=== PATIENT | female | born 1960 | race Caucasian/White ===

== ENCOUNTER 2017-06-16 14:38 | Emergency (ER) | payer OTHER, SELFPAY ==
[2017-06-16 14:39] VITALS: BP 126/67; PULSE 85; RESP 16; TEMP 36.6; O2SAT 98; BMI 33.0
--- NOTE | 2017-06-16 15:37 | RAD_ITS ---
STUDY: X-RAY - RIGHT WRIST REASON FOR EXAM: Female, 56 years old. Wrist pain. TECHNIQUE: 3 view(s) of the wrist were obtained. COMPARISON: None. FINDINGS: Normal visualized distal radius and ulna. Normal radiocarpal articulation. Normal distal radioulnar articulation. Normal carpal bones. Normal carpal articulations. Normal carpometacarpal articulation of the thumb. Normal second through fifth carpometacarpal articulations. Normal visualized metacarpal bones. The soft tissue structures are unremarkable. There is no demonstrated acute fracture. RAD/Wrist min 3 Views IMPRESSION: Normal x-ray examination of the wrist. Electronically Signed: Tremaine Bellamy MD at 16:37 EST , Service support ,
--- NOTE | 2017-06-16 15:37 | RAD_ITS ---
STUDY: X-RAY - RIGHT SHOULDER REASON FOR EXAM: Female, 56 years old. Fall. Shoulder pain. TECHNIQUE: 4 view(s) of the shoulder. COMPARISON: None. FINDINGS: Normal glenohumeral articulation. Normal acromioclavicular joint. Normal acromion. Normal humeral head and visualized proximal humerus. The soft tissue structures are unremarkable. There is no demonstrated fracture. Normal visualized pulmonary apex. RAD/Shoulder min 2 Views IMPRESSION: Normal x-ray examination of the shoulder. Electronically Signed: Tremaine Bellamy MD at 16:39 EST , Service support ,
--- NOTE | 2017-06-16 15:37 | RAD_ITS ---
STUDY: X-RAY - LEFT WRIST REASON FOR EXAM: Female, 56 years old. Fall. Left wrist pain. TECHNIQUE: 3 view(s) of the wrist were obtained. COMPARISON: None. FINDINGS: Normal visualized distal radius. Old ununited fracture of the tip of the ulnar styloid. Normal radiocarpal articulation. Normal distal radioulnar articulation. Normal carpal bones. Normal carpal articulations. Normal carpometacarpal articulation of the thumb. Normal second through fifth carpometacarpal articulations. Normal visualized metacarpal bones. The soft tissue structures are unremarkable. There is no demonstrated acute fracture. RAD/Wrist min 3 Views IMPRESSION: No acute fracture or dislocation. Electronically Signed: Tremaine Bellamy MD at 16:42 EST , Service support ,
--- NOTE | 2017-06-16 15:42 | ED.VISSUMM ---
- ER Visit Summary Date of Service: 06/16/17 Chief Complaint: Fall History of Present Illness: The patient is a 56 F who fell on a slick floor at [facility] this afternoon. She did hit her head but did not lose consciousness. She is complaining of pain to the bilateral wrists, right shoulder, and right hip. She has been able to ambulate. She has not yet taken anything for pain. She does not take anticoagulants. Physical Examination: Vital signs are unremarkable. Head and neck examination reveals no external sign of trauma. She has no C-spine tenderness. Heart is regular rate and rhythm. Lung sounds are clear. There is no chest wall tenderness. Abdomen is soft nontender. Upper extremity examination reveals tenderness of the bilateral wrist without deformity or edema. She has good strength and range of motion. She does have reproducible tenderness over the upper portion of the right scapula. She has good range of motion of the right shoulder. No abrasions or ecchymosis is noted. Lower extremity examination reveals tenderness of the greater trochanter of the right hip. She has very minimal if any pain with logroll of the right hip. She has strong distal pulses and good range of motion. Test Results: X-rays are reviewed by myself. Bilateral wrist x-rays reveal an old ulnar styloid process fracture on the left. No evidence of acute fracture is noted. Right shoulder x-rays are unremarkable. Right hip and pelvis x-rays are normal. Emergency Department Course and Treatment: Patient declined anything for pain while here. Test results were discussed with her and her . She will be discharged home with instructions to take Tylenol or ibuprofen for pain. Treatment Plan: [] Disposition: Discharge Impression: 1. Mechanical fall 2. Bilateral wrist contusions 3. Right shoulder contusion 4. Right hip contusion This note was generated with [employer] dictation software. It may contain incorrect words, spelling, and punctuation that were not noted in review of the chart prior to signing ED Disposition - Plan for ED Patient: Chief Complaint: Fall Referrals: Edmund Fajardo MD [Primary Care Provider] -
--- NOTE | 2017-06-16 16:05 | RAD_ITS ---
STUDY: X-RAY - PELVIS AND RIGHT HIP REASON FOR EXAM: Female, 56 years old. Fall. TECHNIQUE: Radiological exam, hip, unilateral, with pelvis when performed; 2 or 3 views. COMPARISON: None. FINDINGS: There is a non-specific bowel gas pattern. Normal visualized soft tissue structures. Normal bilateral iliac wings, sacroiliac joints and visualized sacrum. Normal bilateral superior and inferior pubic rami. Normal pubic symphysis. Normal bilateral ischial tuberosities. Normal visualized femoral head. Normal acetabulum. Normal hip joint. RAD/Hip 2-3 Views with Pelvis IMPRESSION: Normal x-ray examination of the pelvis and hip. Electronically Signed: Tremaine Bellamy MD at 16:39 EST , Service support ,
--- NOTE | 2017-06-16 16:40 | ED.DEP ---
ED Disposition - Plan for ED Patient: Disposition: Home or Assisted Living Chief Complaint: Fall Instructions: ED Mechanical Fall, ED Contusion Lower Ext, ED Contusion Upper Ext Referrals: Edmund Fajardo MD [Primary Care Provider] - 1 Week if not improving
[2017-06-16 16:56] VITALS: BP 125/88; PULSE 96; RESP 17
== END 2017-06-16 17:00 | disposition home or self-care (01) ==
PROVIDERS: Emergency Provider Emergency Medicine; Family Provider Family Medicine; PCP Family Medicine
DX: S60.212A Contusion of left wrist, initial encounter (principal); S60.211A Contusion of right wrist, initial encounter; S40.011A Contusion of right shoulder, initial encounter; S70.01XA Contusion of right hip, initial encounter; S09.90XA Unspecified injury of head, initial encounter; W01.0XXA Fall on same level from slipping, tripping and stumbling without subsequent striking against object, initial encounter; Y93.9 Activity, unspecified; Y92.511 Restaurant or cafe as the place of occurrence of the external cause; Y99.9 Unspecified external cause status; M19.90 Unspecified osteoarthritis, unspecified site
CPT/HCPCS: 73030; 73110; 73502; 99282

== ENCOUNTER 2017-12-01 11:30 | Outpatient (RCR) | payer OTHER, SELFPAY ==
--- NOTE | 2017-11-08 17:01 | HP.PTREVAL_ITS ---
Mikhail Fajardo, It has been my pleasure to treat KELVIN RENO over the last 7 visits for IT Band Syndrome Bilateral. Please see the progress note below for an update on the physical therapy plan of care! Subjective: L knee does not ache like it did at night. Feels good when not rolling or poking at it. Still need more flexibility. Sleeping OK. Activity is normal, used to avoid due to would pay for it. Standing on the ladder hurt the back of both legs when she stands on ladder too long.No f/u with doctor. Objective/Function: strength in hip abd and ext 4/5 but still slightly painful B ITB. tender over ITB L distal. Still very tight B ITB with only about 4 degrees of passive abd in sidelying. Walking well and steps reciprocal without rail today. OVERALL MUCH IMPROVED BUT STILL NOT HAPPY WITH TIGHTNESS ADN INTERMITTENT DISCOMFORT IN ITB. Approriate to continue for soft tissue work B ITB. Plan Plan: change to plan2x/week for 3 weeks.. Please do MH adn aggressive massage to ITB, quad and HS adn aggressive stretch to those also. Pt can do strength and stretching on own at home. EG to recheck in 3 weeks. Goals Goal 1:: Patient will increase BLE grossly 4+/5 for improved performance with functional activities Goal Time Frame: 4-6 Weeks Goal Progress: 4/5 Goal 2:: Patient will demonstrate mild tightness of bilateral IT band for improved flexibility and decrease pain Goal Time Frame: 4-6 Weeks Goal Progress: L max tight, R mod. Goal 3:: Patient will squat down to grain picker an object and return to standing without UE support or increase in knee pain for improved performance with functional tasks Goal Time Frame: 4-6 Weeks Goal Progress: Goal Met Goal 4:: Patient will descend a flight of stairs without increasing knee pain for improved mobility Goal Time Frame: 4-6 Weeks Goal Progress: Goal Met Goal 5:: 12 degrees adduction passively in B ITB to reduce tightness. Goal Time Frame: 2 Weeks Goal Progress: NEW GOAL Anticipated Interventions Patient/Client Instruction: Educate patient on: Plan of Care For the Purpose of:: To decrease pain, To increase ROM, To improve muscle performance and motor function, To improve ability to perform ADL's, To improve performance and independence with ADL's, To improve ability of physical actions for home/community/work/leisure, To improve gait and locomotor functions, To increase flexibility/ROM, To improve endurance, To improve balance Therapeutic Exercise to Include: Strength training, Endurance training, Balance training, Body mechanics, Flexibilty training, Gait and locomotor training, Neuromotor development For the Purpose of:: To increase ROM, To improve muscle performance and motor function, To improve ability to perform ADL's, To improve ability of physical actions for home/community/work/leisure, To increase flexibility/ROM, To improve endurance, To improve balance Functional Training to Include: ADL Training, Gait training For the Purpose of:: To improve ability to perform ADL's, To increase tolerance to activity/condition/position For the Purpose of:: To decrease pain, To increase ROM, To increase flexibility/ ROM For the Purpose of:: To decrease pain, To increase ROM Please do not hesitate to contact me at [phone] by phone or Fax: if you have questions or concerns regarding this new plan of care! Sincerely, Grant Carter, DPT, OC
--- NOTE | 2017-12-01 11:51 | HP.PTDCSUM_ITS ---
HP - PT D/C Summary It has been my pleasure to treat KELVIN RENO under orders from Mikhail Fajardo, for the diagnosis of IT Band Syndrome Bilateral for a total of 12 visit( s). Discharge Date: 12/01/17 Please see the following information for a summary of their discharge status. - Subjective Subjective: Has appt with doctor on Tuesday. Wants MRI to see what it is. Pain in last two days at the end of the day described as a toothache adn stiff going down steps. Early in the day is not a lot of painful problems but worried about lump on L lateral quad. Activities pretty normal, just aches at end of day. - Pain left knee Pain Intensity (Out of 10): 0 RIGHT KNEE Pain Intensity (Out of 10): 0 - Overall Improvement % Improvement: 75 - Objective Objective/Function: Definite mass in L lateral quad near patella that is not responding to soft tissue work. Strength is 4+ in HS and quad without pain. Pt lacks confidence in L LE on descending steps but can do it reciprocally. Full AROM knee but ITB and quad remain tight despite afggressive sfot tissue work. OVERALL PT IS FRUSTRATED WITH NODULE IN l LATERAL QUAD AND CONTINUED ACHE AT END OF DAY AND WILL F/U WITH DCOTR. - Goals Goal 1:: Patient will increase BLE grossly 4+/5 for improved performance with functional activities Goal Progress: Goal Met Goal 2:: Patient will demonstrate mild tightness of bilateral IT band for improved flexibility and decrease pain Goal Progress: Not Progressing Goal 3:: Patient will squat down to continuous pickling line pickler an object and return to standing without UE support or increase in knee pain for improved performance with functional tasks Goal Progress: locks up Goal 4:: Patient will descend a flight of stairs without increasing knee pain for improved mobility Goal Progress: hurts still Goal 5:: 12 degrees adduction passively in B ITB to reduce tightness. Goal Progress: NEW GOAL - Plan Plan: D/C, PT BACK TO DOCTOR. - D/C Information Discharge Comments: Pt not satisfactorily improved and will continue HEP but schedule with doctor regarding other options as nodule in L lateral quad is not responding to aggressive soft tissue work. If there are questions or concerns regarding this patient's physical therapy, please feel free to call me at [phone]. Thank you for the referral of this patient. Sincerely, Grant Carter, DPT, OC
== END 2017-12-01 19:00 | disposition home or self-care (01) ==
LOC: PT 11:30
PROVIDERS: Family Provider Family Medicine; PCP Family Medicine; Visit Provider Family Medicine
DX: M76.32 Iliotibial band syndrome, left leg (principal); M76.31 Iliotibial band syndrome, right leg
CPT/HCPCS: 97110; 97140; 97162; 97530

== ENCOUNTER → 2018-01-04 08:47 | Outpatient (CLI) | payer OTHER, SELFPAY ==
[2018-01-04 10:03] LABS: Absolute Lymphocyte Count 1.52 X10^3/ul (0.83-4.51); Absolute Neutrophil Count 4.2 X10^3/uL (2.0-7.7); Basophil# 0.01 X10^3/uL; Basophil% 0.2 % (0-1); Eosinophil# 0.05 X10^3/uL; Eosinophils% 0.8 % (0-5); Hematocrit 44.1 % (37-47); Hemoglobin 14.5 g/dl (12.0-15.0); Lymphocyte # 1.52 X10^3/ul (4.0); Lymphocyte % 24.9 % (19-41); Mean Corp Hgb Conc 32.9 g/gl (32-36); Mean Corpuscular Hgb 29.8 pg (27.0-32.0); Mean Corpuscular Volume 90.6 fL (81-99); Mean Platelet Vol. 10.4 fl (6.2-12.0); Monocyte# 0.31 X10^3/uL; Monocyte% 5.1 % (0-10); Neutrophil # 4.21 X10^3/uL (2.7-7.7); Neutrophil % 68.8 % (47-70); Platelet Count 198 K/mm3 (150-450); RBC Distribution Width CV 12.4 % (11.6-14.6); RBC Distribution Width SD 40.7 fl (35.1-43.9); Red Blood Count 4.87 M/mm3 (4.2-5.4); White Blood Count 6.1 K/mm3 (4.4-11.0)
[2018-01-04 10:06] LABS: POSITIVE COUNT NO; POSITIVE DIFFERENTIAL NO; POSITIVE MORPHOLOGY NO
[2018-01-04 10:08] LABS: Anion Gap 7 (5-15); BUN 21 mg/dL (7-18); BUN/Creat Ratio 24.6 RATIO (10-20); Chloride 104 mmol/L (98-107); Creatinine, Serum 0.85 mg/dL (0.55-1.02); EST Glomerular Filtration Rate 74 mL/min (>60); Est Glom Filt Rate - Afr Amer 89 mL/min (>60); Glucose 92 mg/dL (74-106); Potassium 4.2 mmol/L (3.5-5.1); Sodium Level 140 mmol/L (136-145)
== END ==
PROVIDERS: Family Medicine; Family Provider Family Medicine; PCP Family Medicine; Visit Provider Family Medicine
DX: N12 Tubulo-interstitial nephritis, not specified as acute or chronic (principal)
CPT/HCPCS: 36415; 80048; 85025

== ENCOUNTER → 2018-01-04 09:19 | Outpatient (CLI) | payer OTHER, SELFPAY | PROVIDERS: Family Provider Family Medicine; PCP Family Medicine; Visit Provider Family Medicine | DX: N12 Tubulo-interstitial nephritis, not specified as acute or chronic (principal) | CPT/HCPCS: 74178; Q9967 ==

== ENCOUNTER → 2018-01-04 13:10 | Outpatient (CLI) | payer OTHER, SELFPAY | PROVIDERS: Family Provider Family Medicine; PCP Family Medicine; Visit Provider Family Medicine | DX: N12 Tubulo-interstitial nephritis, not specified as acute or chronic (principal) | CPT/HCPCS: 87077; 87086; 87088; 87186 ==

== ENCOUNTER → 2018-02-23 07:15 | Outpatient (CLI) | payer SELFPAY, OTHER ==
--- NOTE | 2018-02-23 07:22 | MRI_ITS ---
STUDY: MRI LEFT KNEE REASON FOR EXAM: Left knee pain for about 2 years. TECHNIQUE: Standardized fat and water weighted pulse sequences were obtained in all 3 orthogonal planes. COMPARISON: Radiographs 12/27/2016. FINDINGS: There is minimal intrasubstance myxoid degeneration of the posterior horn of the medial meniscus without discrete medial meniscal tear. Normal hyaline cartilage of the medial femorotibial compartment. Normal medial femoral condyle and tibial plateau. Normal medial collateral ligamentous complex (MCL). Normal distal semimembranosus, gracilis and semitendinosus tendons. Normal lateral meniscus. Normal hyaline cartilage of the lateral femorotibial compartment. Normal lateral femoral condyle and tibial plateau. Normal proximal tibiofibular articulation. Normal lateral collateral (fibular) ligament. Normal popliteus tendon. Normal biceps femoris tendon. Normal anterior cruciate ligament (ACL). Normal posterior cruciate ligament (PCL). Normal congruent patellofemoral articulation. Normal hyaline cartilage of the patellofemoral compartment. Normal medial and lateral patellar retinaculum. Normal visualized quadriceps tendon. Normal patellar tendon. Normal Hoffa's fat pad. There is no joint effusion. There is a ganglion cyst of the distal popliteus tendon sheath (T2 sagittal images 15, 16) measuring 2.8 cm in length. There is edema in the anterior subcutis adipose space. The otherwise visualized osseous structures are unremarkable. MRI/Lower Ext Joint Only (Routine) IMPRESSION: Ganglion cyst of the distal popliteus tendon sheath. Edema in the anterior subcutis adipose space. No demonstrated meniscal or ligamentous injury. Electronically Signed: Manjit Lugo MD at 8:54 EDT Tel , Service support ,
== END ==
PROVIDERS: Family Provider Family Medicine; PCP Family Medicine; Visit Provider Family Medicine
DX: M25.562 Pain in left knee (principal)
CPT/HCPCS: 73721; A4216

== ENCOUNTER → 2018-05-15 15:39 | Outpatient (CLI) | payer OTHER, SELFPAY ==
[2018-03-13 08:09] VITALS: BMI 32.0
== END ==
PROVIDERS: Family Provider Family Medicine; PCP Family Medicine; Referring Provider Family Medicine; Visit Provider Family Medicine
DX: R39.15 Urgency of urination (principal)
CPT/HCPCS: 87086; 87088

== ENCOUNTER → 2018-05-16 12:14 | Outpatient (CLI) | payer OTHER, SELFPAY ==
--- NOTE | 2018-05-16 12:17 | US_ITS ---
STUDY: SUPERFICIAL ULTRASOUND - ABOVE THE LEFT KNEE. REASON FOR EXAM: Female, 57 years old. Pain superior to left kidney. TECHNIQUE: A superficial ultrasound was performed with real-time and static gonzalez-scale imaging. COMPARISON: None. FINDINGS: There is edema of the soft tissue above the left knee. No suspicious mass. No suspicious fluid. US/Other Unlisted US Procedure IMPRESSION: Edema above the left knee without suspicious mass. Electronically Signed: Joseph Sapp MD at 11:37 EST , Service support ,
== END ==
PROVIDERS: Family Provider Family Medicine; PCP Family Medicine; Referring Provider Physician Assistant; Visit Provider Physician Assistant
DX: M17.12 Unilateral primary osteoarthritis, left knee (principal); M71.22 Synovial cyst of popliteal space [Baker], left knee
CPT/HCPCS: 76999

== ENCOUNTER → 2018-10-26 07:42 | Outpatient (CLI) | payer OTHER, SELFPAY ==
[2018-03-13 08:09] VITALS: BMI 32.0
[2018-10-26 10:19] LABS: Vitamin B12 347 pg/mL (211-911); Vitamin D,25 Hydroxy 26.4 ng/mL (29.95-100.01)
[2018-10-26 10:23] LABS: ALB/GLOB Ratio 1.1 RATIO (0.9-2.4); AST(SGOT) 13 U/L (15-37); Alanine Aminotransfer ALT/SGPT 26 U/L (13-56); Albumin, Serum 3.5 g/dL (3.2-5.0); Alkaline Phosphatase 107 U/L (45-117); Anion Gap 9 (5-15); BUN 20 mg/dL (7-18); BUN/Creat Ratio 25.7 RATIO (10-20); Calcium,Total 8.8 mg/dL (8.5-10.1); Chloride 107 mmol/L (98-107); Cholesterol 191 mg/dL (200); Creatinine, Serum 0.78 mg/dL (0.55-1.02); EST Glomerular Filtration Rate 81 mL/min (>60); Est Glom Filt Rate - Afr Amer 99 mL/min (>60); Globulin 3.2 g/dL (2.2-4.2); Glucose 85 mg/dL (74-106); High Density Lipoprotein 54 mg/dL; Protein, Total 6.7 g/dL (6.4-8.2); Sodium Level 144 mmol/L (136-145); Thyroid Stim Hormone (TSH) 1.67 uIU/mL (0.358-3.74); Triglycerides 130 mg/dL; Very Low Density Lipoprotein 26 mg/dL (5-40)
== END ==
PROVIDERS: Family Provider Family Medicine; PCP Family Medicine; Referring Provider Family Medicine; Visit Provider Family Medicine
DX: Z00.00 Encounter for general adult medical examination without abnormal findings (principal); L40.50 Arthropathic psoriasis, unspecified; E78.00 Pure hypercholesterolemia, unspecified; K58.1 Irritable bowel syndrome with constipation; E53.8 Deficiency of other specified B group vitamins
CPT/HCPCS: 36415; 80053; 80061; 82306; 82607; 84443

== ENCOUNTER 2018-11-04 12:47 | Emergency (ER) | payer OTHER, SELFPAY ==
[2018-11-04 12:48] VITALS: BP 117/77; PULSE 92; RESP 16; TEMP 36.8; O2SAT 99; BMI 33.5
--- NOTE | 2018-11-04 13:27 | CT_ITS ---
STUDY: CT ABDOMEN AND PELVIS WITHOUT CONTRAST REASON FOR EXAM: Female, 58 years old. Acute onset of right flank pain RADIATION DOSAGE (If Supplied By Facility): CTDIvol = ( 13.40 ) mGy, DLP = ( 612.53 ) mGycm TECHNIQUE: Transaxial images were obtained from the dome of the diaphragm to the symphysis pubis without oral contrast, and without intravenous contrast. Sagittal and coronal images were reconstructed. Individualized dose optimization techniques were used for this CT. COMPARISON: 01/04/2018 FINDINGS: The visualized lung bases are unremarkable. The visualized portions of the heart are within normal limits. Normal liver. Normal gallbladder and extrahepatic biliary system. Eggshell calcification the spleen is stable. Normal pancreas. Normal bilateral adrenal glands. Mild right hydronephrosis and proximal right hard ureter with a 2 mm calcification in the right distal ureter (image 138). There is a punctate calcification of the posterior right kidney on image 61. Normal left kidney. Normal visualized stomach. Normal small intestine. There are multiple colonic diverticula consistent with diverticulosis. The appendix is visualized and appears normal. Normal abdominal aorta. Normal inferior vena cava. Normal retroperitoneum. Normal urinary bladder. There is absence of the uterus consistent with a prior hysterectomy. There is a small umbilical hernia containing fat. There are degenerative changes of the lumbar spine most conspicuous at L5-S1. CT/Abdomen/Pelvis without Cont IMPRESSION: 1. 2 mm distal right ureter calculus with mild hydronephrosis/hydroureter. Electronically Signed: Jonathon Jones MD at 14:43 EDT , Service support ,
--- NOTE | 2018-11-04 13:28 | ED.VISSUMM ---
- ER Visit Summary Date of Service: 11/04/18 Chief Complaint: Right flank pain History of Present Illness: The patient is a 58 F who presents with right flank pain that began today. Patient states she has a history of kidney stones and states this feels similar to that. Patient noted some hematuria today. Patient describes her pain is sharp. Patient states the pain is localized to the right flank area. Patient admits to some nausea and vomiting. Patient denies any fevers or chills. Patient denies any diarrhea. Patient denies any dysuria. Physical Examination: Vital signs are stable. Patient is afebrile. Patient is in no acute distress. Oral mucosa is pink and moist. Neck is supple. Trachea is midline. There is no JVD noted. Heart was regular rate and rhythm. Lungs are clear and equal bilaterally. Abdomen is soft. Bowel sounds are normal. There is some right CVA tenderness. There is no rebound or guarding noted. Cranial nerves II through XII are intact. There are no focal motor or sensory deficits noted. Test Results: CT scan of the abdomen and pelvis was obtained. There is a 2 mm right distal ureteral calculus with right hydronephrosis and hydroureter. Urinalysis showed hematuria with 50-100 red blood cells. There is also leukocyte esterase of 25 and 1+ bacteria. Patient states the last time she had a kidney stone they sent her urine for culture and it was positive. Urine culture was sent. Emergency Department Course and Treatment: Patient was given IV fluids, Zofran, and Toradol here. Patient was feeling better on reevaluation. Patient was given a prescription for [place] and Zofran. Patient was instructed to follow-up with her primary care physician in 3 to 5 days. Patient understood and was agreeable with the plan. All questions were answered. Disposition: Discharge home Impression: Right ureteral calculus This note was generated with [employer] dictation software. It may contain incorrect words, spelling, and punctuation that were not noted in review of the chart prior to signing ED Disposition - Plan for ED Patient: Disposition: Home or Assisted Living Diagnosis: Right ureteral calculus Instructions: KIDNEY STONE w/ Colic Prescriptions: Hydrocodone Bitart/Apap 5-325 [[place] 5MG-325MG] 1 tab PO Q6H PRN PRN 3 Days #10 tab PRN Reason: Pain Prescription Printed Ondansetron [Zofran Odt] 4 mg PO Q8H PRN PRN #10 tab PRN Reason: Nausea Prescription Printed Referrals: Edmund Fajardo MD [Primary Care Provider] - 3-5 Days
[2018-11-04] MEDS: Ondansetron 4 MG/2 ML Vial IV (13:48)
[2018-11-04] MEDS: 0.9% Normal Saline 1,000 ML 250 ML IV (13:48)
[2018-11-04] MEDS: Ketorolac 30 MG/ML Syringe IV (13:48)
[2018-11-04 14:01] LABS: Mucous, Urine 0 SEEN /hpf (<or=2+); Squamous Epithelial Cells - UA 0 SEEN /hpf (5-10)
[2018-11-04 14:09] LABS: Color, Urine Yellow (Yellow); Glucose, Dipstick Normal (Normal); Ketone-Dipstick 5 mg/dl (Negative); Leukocyte Esterase-Dipstick 25 /ul (Negative); Nitrite-Dipstick Negative (Negative); Occult Blood-Urine 250 /ul (Negative); Protein-Dipstick 30 mg/dl (Negative); Urine Bilirubin Dipstick Negative (Negative); Urine Clarity Clear (Clear); Urine Urobilinogen Normal (Normal)
[2018-11-04 14:18] LABS: Bacteria 1+ /hpf (None Seen); Red Blood Cells-Urine 50-100 SEEN /hpf (0-5); White Blood Cells 0-5 SEEN /hpf (0-5)
[2018-11-04 15:52] VITALS: BP 147/77; PULSE 73; RESP 15
[2018-11-04] MEDS: Morphine 4 MG/ML Syringe IV (15:53)
== END 2018-11-04 16:19 | disposition home or self-care (01) ==
PROVIDERS: Emergency Provider Emergency Medicine; Family Provider Family Medicine; PCP Family Medicine
DX: N13.2 Hydronephrosis with renal and ureteral calculous obstruction (principal); J02.9 Acute pharyngitis, unspecified; E66.9 Obesity, unspecified; Z87.442 Personal history of urinary calculi
CPT/HCPCS: 74176; 81001; 87086; 87088; 96361; 96374; 96375; 99283; J7030; J2405

== ENCOUNTER → 2018-11-06 15:35 | Outpatient (CLI) | payer OTHER, SELFPAY ==
[2018-11-04 12:48] VITALS: BMI 33.5
== END ==
PROVIDERS: Family Provider Family Medicine; PCP Family Medicine; Referring Provider Family Medicine; Visit Provider Family Medicine
DX: N20.0 Calculus of kidney (principal)
CPT/HCPCS: 87077; 87086; 87088; 87186

== ENCOUNTER → 2018-11-11 09:05 | Outpatient (CLI) | payer OTHER, SELFPAY ==
[2018-11-04 12:48] VITALS: BMI 33.5
--- NOTE | 2018-11-11 09:19 | US_ITS ---
STUDY: RENAL ULTRASOUND - COMPLETE REASON FOR EXAM: Female, 58 years old. HYDRONEPHROSIS TECHNIQUE: Ultrasound evaluation of the kidneys was performed with real-time and static silva-scale imaging. COMPARISON: CT scan 11/04/2018. FINDINGS: RIGHT KIDNEY: Normal location of the right kidney, which is normal in size. The right kidney measures 11.1 x 5.7 x 4.4 cm. There is a normal cortex of the right kidney. The renal cortex measures 1.6 cm. There is no right renal mass or cyst. There are no right renal calculi. There is no right hydronephrosis. DISTAL RIGHT URETER: There is non-visualization of the distal right ureter. There is no demonstrated right ureterovesical junction calculus. There is a visualized right ureteral jet. LEFT KIDNEY: Normal location of the left kidney, which is normal in size. The left kidney measures 10.6 x 5.2 x 5.0 cm. There is a normal cortex of the left kidney. The renal cortex measures 1.7 cm. There is no left renal mass or cyst. There are no left renal calculi. There is no left hydronephrosis. DISTAL LEFT URETER: There is non-visualization of the distal left ureter. There is no demonstrated left ureterovesical junction calculus. There is a visualized left ureteral jet. BLADDER: The urinary bladder is nondistended. There is a normal wall thickness of the distended urinary bladder. There is no demonstrated mass within the urinary bladder. There are no demonstrated bladder calculi. US/Kidney and Bladder IMPRESSION: Normal ultrasound of the kidneys and nondistended urinary bladder. Electronically Signed: Tremaine Bellamy MD at 16:32 EDT , Service support ,
== END ==
PROVIDERS: Family Provider Family Medicine; PCP Family Medicine; Referring Provider Family Medicine; Visit Provider Family Medicine
DX: N13.30 Unspecified hydronephrosis (principal)
CPT/HCPCS: 76770

== ENCOUNTER → 2019-11-23 07:25 | Outpatient (CLI) | payer OTHER, SELFPAY ==
[2019-11-23 10:35] LABS: Erythrocyte Sedimentation Rate 6 mm/hr (0-30)
[2019-11-23 10:38] LABS: Absolute Lymphocyte Count 1.57 X10^3/uL (0.83-4.51); Absolute Neutrophil Count 3.4 X10^3/uL (2.0-7.7); Basophil# 0.02 X10^3/uL; Basophil% 0.4 % (0-1); Eosinophil# 0.11 X10^3/uL; Hematocrit 45.1 % (37-47); Hemoglobin 14.6 g/dL (12.0-15.0); Lymphocyte # 1.57 X10^3/ul (4.0); Lymphocyte % 28.4 % (19-41); Mean Corp Hgb Conc 32.4 g/dL (32-36); Mean Corpuscular Hgb 29.8 pg (27.0-32.0); Mean Platelet Vol. 10.4 fl (6.2-12.0); Monocyte% 7.2 % (0-10); NRBC Flagged by Analyzer 0 % (0-5); Neutrophil % 61.5 % (47-70); Platelet Count 207 K/mm3 (150-450); RBC Distribution Width CV 11.9 % (11.6-14.6); RBC Distribution Width SD 40.2 fl (35.1-43.9); White Blood Count 5.5 K/mm3 (4.4-11.0)
[2019-11-23 10:55] LABS: ALB/GLOB Ratio 1.1 RATIO (0.9-2.4); AST(SGOT) 11 U/L (15-37); Alanine Aminotransfer ALT/SGPT 21 U/L (13-56); Albumin, Serum 3.6 g/dL (3.2-5.0); Alkaline Phosphatase 107 U/L (45-117); Anion Gap 5 (5-15); BUN 23 mg/dL (7-18); BUN/Creat Ratio 29.3 RATIO (10-20); Calcium,Total 8.8 mg/dL (8.5-10.1); Chloride 105 mmol/L (98-107); Cholesterol 203 mg/dL (200); Creatinine, Serum 0.79 mg/dL (0.55-1.02); EST Glomerular Filtration Rate 80 mL/min (>60); Est Glom Filt Rate - Afr Amer 97 mL/min (>60); Globulin 3.2 g/dL (2.2-4.2); Glucose 82 mg/dL (74-106); High Density Lipoprotein 54 mg/dL; Iron 99 ug/dL (50-170); Potassium 3.9 mmol/L (3.5-5.1); Protein, Total 6.8 g/dL (6.4-8.2); Sodium Level 141 mmol/L (136-145); Thyroid Stim Hormone (TSH) 1.69 uIU/mL (0.358-3.74); Triglycerides 152 mg/dL; Very Low Density Lipoprotein 30 mg/dL (5-40)
[2019-11-23 11:44] LABS: Vitamin B12 996 pg/mL (211-911); Vitamin D,25 Hydroxy 58.1 ng/mL
== END ==
PROVIDERS: PCP Family Medicine; Referring Provider Family Medicine; Visit Provider Family Medicine
DX: R53.83 Other fatigue (principal); L40.50 Arthropathic psoriasis, unspecified; E78.00 Pure hypercholesterolemia, unspecified; E53.8 Deficiency of other specified B group vitamins; R79.89 Other specified abnormal findings of blood chemistry
CPT/HCPCS: 36415; 80053; 80061; 82306; 82533; 82607; 83540; 84443; 85025; 85652

== ENCOUNTER 2020-02-01 03:12 | Emergency (ER) | payer OTHER, SELFPAY ==
[2020-02-01 03:14] VITALS: BP 154/95; PULSE 79; RESP 16; TEMP 36.6; O2SAT 97; BMI 35.2
--- NOTE | 2020-02-01 03:15 | CT_ITS ---
STUDY: CT ABDOMEN AND PELVIS WITHOUT CONTRAST REASON FOR EXAM: Female, 59 years old. RT FLANK PAIN AND NAUSEA SINCE TUESDAY,DIFFICULT URINATION -- HX:HLD,KIDNEY STONES,TUBAL LIGATION,HYSTERECTOMY-HAS OVARIES RADIATION DOSAGE (If Supplied By Facility): CTDIvol = ( 12.73 ) mGy, DLP = ( 604.42 ) mGycm TECHNIQUE: Transaxial images were obtained from the dome of the diaphragm to the symphysis pubis without oral contrast, and without intravenous contrast. Sagittal and coronal images were reconstructed. Individualized dose optimization techniques were used for this CT. COMPARISON: 11/04/2018 FINDINGS: The visualized lung bases are unremarkable. The visualized portions of the heart are within normal limits. Normal liver. Normal gallbladder and extrahepatic biliary system. Normal spleen. Normal pancreas. Stable splenic calcification. Normal bilateral adrenal glands. Normal right kidney. Normal left kidney. Normal visualized stomach. Normal small intestine. There are multiple colonic diverticula consistent with diverticulosis. The appendix is visualized and appears normal. Normal abdominal aorta. Normal inferior vena cava. Normal retroperitoneum. Bladder is moderately underdistended. There is absence of the uterus consistent with a prior hysterectomy. Normal abdominal wall. Normal osseous structures. CT/Abdomen/Pelvis without Cont IMPRESSION: No evidence of urolithiasis or renal obstruction. Remainder of the exam is within normal limits for age. Electronically Signed: Sriram Henriquez DO at 3:58 EDT Tel , Service support ,
--- NOTE | 2020-02-01 03:16 | ED.VIS.GEN ---
History of Present Illness Chief Complaint: Flank Pain Informant: Patient Onset: Days Context: Gradual Onset Timing: Continuous Current Severity: Moderate Maximum Severity: Moderate Narrative: The patient is a 59-year-old female with medical history significant for kidney stone that presents to the emergency department for right-sided flank pain. The patient states her symptoms began on . She is been nauseated without vomiting. She did take some oral pain medication as she does have a history of stone. She states seemed to help, but the pain got worse today. She denies any fevers or chills. She noticed bruising in her right back but cannot recall any definitive trauma. The patient is otherwise been in her normal state of health. She does not smoke. She has no history of aortic aneurysm. Prior similar symptoms: Yes Recent Illness/Hospitalization: No Past Medical History - Allergies and Home Meds Allergies/Adverse Reactions: Allergies latex Adverse Reaction (Verified 11/04/18 12:51) Itching Primary Care Physician: Edmund Fajardo MD [Primary Care Provider] - Prior records reviewed: Yes Past Medical History: - - Hyperlipidemia Surgical History: noncontributory Smoking Status: Never smoker Review of Systems General: Denies: Chills, Fever, Sweats Eyes: Denies: Visual changes - bilaterally, Diplopia ENT: Denies: Rhinorrhea, Sore throat Cardiovascular: Denies: Chest pain, Palpitations Respiratory: Denies: Dyspnea, Cough, Dyspnea on exertion Gastrointestinal: Reports: Abdominal pain, Nausea. Denies: Vomiting, Diarrhea, Melena, Hematochezia Genitourinary: Denies: Dysuria, Hematuria, Frequency Musculoskeletal: Reports: Back pain. Denies: Extremity Pain Skin: Denies: Rash, Wounds Neurological: Denies: Headache, Weakness, Numbness Physical Exam Inital Vital Signs reviewed: Yes General: Well nourished, Well developed, No Acute Distress Head: Normocephalic, Atraumatic Eyes: Perrl, EOMI ENT: Moist mucous membranes, No rhinorrhea Neck: Supple, Nontender Cardiovascular: Regular rate, Regular rhythm, No murmurs Respiratory: No distress, CTA bilaterally, Chest nontender Abdomen: Soft, Nontender, Nondistended, Normal bowel sounds Back: CVA tenderness - Patient has some ecchymosis just over the SI joint on the right. There is no step-off or deformity. Extremities: Nontender, No edema Skin: Normal color, No rash Neurological: Alert, Oriented x3, Cranial nerves II-XII grossly intact, Normal Strength, Normal Sensation Psychological: Normal affect, Normal Mood Diagnostic/Tx/Re-eval Clinical Impression(s) from Imaging Studies Abdomen/Pelvis CT 02/01/20 03:15 IMPRESSION: No evidence of urolithiasis or renal obstruction. Remainder of the exam is within normal limits for age. Electronically Signed: Sriram Henriquez DO at 3:58 EDT Tel , Service support , Abnormal Lab Results 02/01/20 02/01/20 02/01/20 03:15 03:15 03:25 WBC 6.5 RBC 4.78 Hgb 14.7 Hct 43.3 MCV 90.6 MCH 30.8 MCHC 33.9 RDW Std Deviation 39.8 RDW Coeff of Maral 12.1 Plt Count 208 MPV 9.9 Immature Gran % (Auto) 0.200 Neut % (Auto) 51.7 Lymph % (Auto) 38.2 [place] % (Auto) 7.5 Eos % (Auto) 2.1 Baso % (Auto) 0.3 Absolute Neuts (auto) 3.4 Absolute Lymphs (auto) 2.49 Nucleated RBC % 0 Sodium 140 Potassium 3.7 Chloride 105 Carbon Dioxide 33.0 H Anion Gap 2 L BUN 20 H Creatinine 0.95 Estim Creat Clear Calc 49.30 Est GFR (MDRD) Af Amer 78 Est GFR (MDRD) Non-Af 65 BUN/Creatinine Ratio 21.1 H Glucose 91 Calcium 8.6 Total Bilirubin 0.60 Direct Bilirubin 0.15 AST 16 ALT 23 Alkaline Phosphatase 111 Total Protein 6.9 Albumin 3.7 Globulin 3.2 Lipase 89 Urine Color Yellow Urine Clarity Clear Urine pH 6.0 Ur Specific [place] 1.020 Urine Protein 15 H Urine Glucose (UA) Normal Urine Ketones Negative Urine Occult Blood Negative Urine Nitrite Negative Urine Bilirubin Negative Urine Urobilinogen Normal Ur Leukocyte Esterase Negative Urine RBC 0 SEEN Urine WBC 0 SEEN Ur Squamous Epith Cells 0-5 SEEN Urine Bacteria 0 SEEN Urine Mucus 0 SEEN - Medical Decision Making Patient presents to the emergency department with increasing right-sided flank pain. She does have a scant area of ecchymosis near the SI joint and moving laterally. She cannot recall any specific trauma. With the ecchymosis, I did run to rule out dangerous retroperitoneal abnormality. IV was established. She initially did not want morphine. Screening labs were obtained. Pancreatic enzymes are normal. Kidney function was normal. Urine shows no evidence of infection. Patient underwent CT imaging. The aorta is normal. There is no evidence of rupture or leak. There is no evidence of hemorrhagic pancreatitis. There is no evidence of retroperitoneal bleed. I do feel that this may be underlying muscular given the ecchymosis in the area. The patient's pain is now controlled. At this point, I do feel that she is safe for outpatient follow-up. I will treat her with analgesics and antispasmodics. She will be discharged home. Impression 1. Right-sided flank pain with bruising ED Disposition - Plan for ED Patient: Instructions: ED Flank Pain Uncertain Cause Prescriptions: cycloBENZAPRine HCl [Flexeril] 10 mg PO TID PRN #20 tab PRN Reason: Muscle Spasm Prescription Printed Hydrocodone Bitart/Apap 5-325 [[place] 5MG-325MG] 1 tab PO Q6H PRN PRN 3 Days #10 tab PRN Reason: Pain Prescription Printed Referrals: Edmund Fajardo MD [Primary Care Provider] -
[2020-02-01 03:25] LABS: Absolute Lymphocyte Count 2.49 X10^3/uL (0.83-4.51); Absolute Neutrophil Count 3.4 X10^3/uL (2.0-7.7); Basophil# 0.02 X10^3/uL; Basophil% 0.3 % (0-1); Eosinophil# 0.14 X10^3/uL; Eosinophils% 2.1 % (0-5); Hematocrit 43.3 % (37-47); Hemoglobin 14.7 g/dL (12.0-15.0); Lymphocyte # 2.49 X10^3/ul (4.0); Lymphocyte % 38.2 % (19-41); Mean Corp Hgb Conc 33.9 g/dL (32-36); Mean Corpuscular Hgb 30.8 pg (27.0-32.0); Mean Corpuscular Volume 90.6 fL (81-99); Mean Platelet Vol. 9.9 fl (6.2-12.0); Monocyte# 0.49 X10^3/uL; Monocyte% 7.5 % (0-10); NRBC Flagged by Analyzer 0 % (0-5); Neutrophil # 3.37 X10^3/uL (2.7-7.7); Neutrophil % 51.7 % (47-70); Platelet Count 208 K/mm3 (150-450); RBC Distribution Width CV 12.1 % (11.6-14.6); RBC Distribution Width SD 39.8 fl (35.1-43.9); Red Blood Count 4.78 M/mm3 (4.2-5.4); White Blood Count 6.5 K/mm3 (4.4-11.0)
[2020-02-01] MEDS: 0.9% Normal Saline 1,000 ML 250 ML IV (03:27)
[2020-02-01] MEDS: Ondansetron 4 MG/2 ML Vial IV (03:27)
[2020-02-01 03:31] LABS: Bacteria 0 SEEN /hpf (None Seen); Mucous, Urine 0 SEEN /hpf (<or=2+); Red Blood Cells-Urine 0 SEEN /hpf (0-5); White Blood Cells 0 SEEN /hpf (0-5)
[2020-02-01 03:32] LABS: Color, Urine Yellow (Yellow); Glucose, Dipstick Normal (Normal); Ketone-Dipstick Negative (Negative); Leukocyte Esterase-Dipstick Negative /ul (Negative); Nitrite-Dipstick Negative (Negative); Occult Blood-Urine Negative /ul (Negative); Protein-Dipstick 15 mg/dl (Negative); Urine Bilirubin Dipstick Negative (Negative); Urine Clarity Clear (Clear); Urine Urobilinogen Normal (Normal)
[2020-02-01 03:38] LABS: Squamous Epithelial Cells - UA 0-5 SEEN /hpf (5-10)
[2020-02-01 03:39] LABS: AST(SGOT) 16 U/L (15-37); Alanine Aminotransfer ALT/SGPT 23 U/L (13-56); Albumin, Serum 3.7 g/dL (3.2-5.0); Alkaline Phosphatase 111 U/L (45-117); Anion Gap 2 (5-15); BUN 20 mg/dL (7-18); BUN/Creat Ratio 21.1 RATIO (10-20); Bilirubin, Direct 0.15 mg/dL (0.00-0.30); Calcium,Total 8.6 mg/dL (8.5-10.1); Chloride 105 mmol/L (98-107); Creatinine, Serum 0.95 mg/dL (0.55-1.02); EST Glomerular Filtration Rate 65 mL/min (>60); Est Glom Filt Rate - Afr Amer 78 mL/min (>60); Globulin 3.2 g/dL (2.2-4.2); Glucose 91 mg/dL (74-106); Lipase 89 U/L (73-393); Potassium 3.7 mmol/L (3.5-5.1); Protein, Total 6.9 g/dL (6.4-8.2); Sodium Level 140 mmol/L (136-145)
[2020-02-01] MEDS: Morphine 4 MG/ML Syringe IV (04:03)
[2020-02-01 04:18] VITALS: BP 150/60; PULSE 74; RESP 16; O2SAT 97
== END 2020-02-01 04:20 | disposition home or self-care (01) ==
PROVIDERS: Emergency Provider Emergency Medicine; PCP Family Medicine
DX: R10.9 Unspecified abdominal pain (principal); E78.5 Hyperlipidemia, unspecified; Z87.442 Personal history of urinary calculi
CPT/HCPCS: 74176; 80048; 80076; 81001; 83690; 85025; 87086; 96374; 96375; 96376; 99282; J7030; A4216; J2405

== ENCOUNTER → 2020-02-04 17:24 | Outpatient (CLI) | payer OTHER, SELFPAY ==
[2020-02-01 03:14] VITALS: BMI 35.2
--- NOTE | 2020-02-04 17:26 | RAD_ITS ---
STUDY: X-RAY - UNILATERAL RIBS ( RIGHT ) REASON FOR EXAM: Female, 59 years old. UPPER RIB PAIN, FALL TECHNIQUE: 2 view(s) of the ribs. COMPARISON: None. FINDINGS: Normal visualized ribs without a demonstrated fracture. The visualized lung is clear and expanded. RAD/Ribs Unil 2V No CXR IMPRESSION: Normal x-ray examination of the ribs. Electronically Signed: Jatinder Hernandes, at 10:36 EDT Tel , Service support ,
== END ==
PROVIDERS: PCP Family Medicine; Referring Provider Family Medicine; Visit Provider Family Medicine
DX: R07.81 Pleurodynia (principal)
CPT/HCPCS: 71100

== ENCOUNTER → 2020-07-22 10:19 | Outpatient (CLI) | payer OTHER, SELFPAY ==
--- NOTE | 2020-07-22 10:22 | RAD_ITS ---
STUDY: X-RAY - CERVICAL SPINE REASON FOR EXAM: Female, 59 years old. Neck pain into left shoulder and arm TECHNIQUE: 6 view(s) of the cervical spine were obtained including oblique views and flexion and extension views.. COMPARISON: None FINDINGS: Normal anterior atlantoaxial articulation. Normal odontoid process. Normal cervical lordosis. Moderate degree of disc space narrowing with minimal anterior spondylosis at the C5-C6 and C6-C7 levels. Normal visualized intervertebral neuroforamina. There are atherosclerotic vascular calcifications of the carotid arteries. RAD/Cerv Spine Obl/Flex/Ext Comp IMPRESSION: Moderate degree of disc space narrowing and anterior spondylosis at the C5-C6 and C6-C7 levels. Atherosclerotic calcification of the carotid bifurcations. Electronically Signed: Vijay Mejia MD at 10:37 EDT , Service support ,
== END ==
PROVIDERS: PCP Family Medicine; Referring Provider Family Medicine; Visit Provider Family Medicine
DX: M47.812 Spondylosis without myelopathy or radiculopathy, cervical region (principal); M48.02 Spinal stenosis, cervical region
CPT/HCPCS: 72052

== ENCOUNTER 2020-08-05 07:00 | Outpatient (RCR) | payer OTHER, SELFPAY ==
--- NOTE | 2020-07-24 17:30 | HP.PTEVAL ---
Patient's Visit Information KELVIN RENO is a 59 year old F referred to Physical Therapy by Dr. Edmund Fajardo MD with a diagnosis of Cervicalgia with radiculopathy. Date of Evaluation: 07/24/20 Physical Therapist: Jacob Carrizales, PT, ATC - Visit Plan Frequency: 2x /Week Duration: 4 Weeks Plan: Cervical traction, postural retraining, scapular strengthening - Subjective Pt. is a 59 y.o. female that reports L cervical and shoulder pain. She has complaints of tightness and stiffness at her neck and L shoulder. Hx of DDD and has seen chiropracter where they did some manipulations which helped improve her ROM but now it has tightened up. She has a dx of cervical radiculopathy. Has had symptoms for about a year now but does not report any mechanism of injury. Pt. decribes her pain is a constant 5/10 nagging pain that does not change and experiences occaisional shooting pains down arm. Has occasional numbness and tingling with L arm supination. 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 Rubbing upper L trapezius helps with pain momentarily. Has a Tens unit at home but states it doesnt help much. Goal for PT is not to be miserable anymore. She wants to be able to hold grandson for a longer period of time. Heating pad helps pain. Pain is preventing her sleep at night. - Pain Cervical spine Pain Intensity (Out of 10): 5 Pain Intensity Range: 5 L shoulder Pain Intensity (Out of 10): 5 Pain Intensity Range: 5 - Objective ROM: cervical: min limited towards the left and painful; mod limited with extension; painful and slow moving into flex. L shoulder: pain with movements but all WNL. R shoulder: WNL overall. MMT: shoulder flex, abd, IR, ER 5/5 bilaterally. Neuro: sensation WNL bilaterally; bicep tendon reflex 2/3 R, 1/3 L. observation: Rounded shoulders with minimal forward head posture. Minimal increase of kyphosis of upper thoracic spine. repeated movements: cervical protraction x10 no change; cervical retracton x10 no change. Spurlings test: + with cervical extension. distraction test- + - Goals Goal 1:: Decrease pain by 50% to aid with sleep through the night. Goal Time Frame: 2-4 Weeks Goal 2:: Decrease pain of cervical spine and L shoulder 50% so pt. can hold grandson for longer periods of time. Goal Time Frame: 2-4 Weeks Goal 3:: Pt. demonstrates and verbalizes improved posture during work day. Goal Time Frame: 2-4 Weeks Goal 4:: I with HEP Goal Time Frame: 4-6 Weeks - Rehabilitation Potential Physical Therapy Diagnosis: cervical and L shoulder pain secondary to cervical radiculopathy Rehabilitation Potential: Good - Anticipated Interventions Patient/Client Instruction: Educate patient on: Condition, Plan of Care For the Purpose of:: To decrease pain, To increase ROM, To improve muscle performance and motor function, To increase tolerance to activity/condition/position, To increase flexibility/ROM Therapeutic Exercise to Include: Postural training, Active ROM, Antolin Exercises, Scapular Strength/Stabilization For the Purpose of:: To decrease pain, To increase ROM, To improve muscle performance and motor function, To increase flexibility/ROM TENS: Yes Intermittent cervical traction: Yes For the Purpose of:: To decrease pain Thank you for the opportunity to evaluate your patient. For Medicare and Medicare HMO plans, please review the plan of care and approve it. It will need to be FAXED BACK to us at [phone] for Medicare purposes. For Medicare only, by signing this I certify the plan of care. Please let me know if there are questions or concerns regarding this plan of care. Physician Signature: Date:
--- NOTE | 2020-12-05 07:12 | HP.PT.NRP ---
KELVIN RENO was seen in my office for initial evaluation on 07/24/20. The following Plan of Care was established for this patient: Initial Frequency: 2x /Week Initial Duration: 4 Weeks Patient/Client Instruction: Educate patient on: Condition, Plan of Care For the Purpose of:: To decrease pain, To increase ROM, To improve muscle performance and motor function, To increase tolerance to activity/condition/position, To increase flexibility/ROM Therapeutic Exercise to Include: Postural training, Active ROM, Antolin Exercises, Scapular Strength/Stabilization For the Purpose of:: To decrease pain, To increase ROM, To improve muscle performance and motor function, To increase flexibility/ROM TENS: Yes Intermittent cervical traction: Yes For the Purpose of:: To decrease pain This patient was last seen in our office . Pertinent comments regarding their Physical therapy will appear below: Pt was treated for 3 visits for neck pain through the date of 08/05/2020. Pt has not returned through todays date, and is discontinued at this time. At this point I will be discontinuing this patient from physical therapy. I would be happy to see this patient again in the future if found appropriate by the physician. Thank you! Jacob Carrizales, PT, ATC Balance/Gait/Functional tests - Balance/Special Test Scores Oswestry Neck Score: 18
== END 2020-08-05 19:00 | disposition home or self-care (01) ==
LOC: PT 07:00
PROVIDERS: PCP Family Medicine; Referring Provider Family Medicine; Visit Provider Family Medicine
DX: M54.12 Radiculopathy, cervical region (principal)
CPT/HCPCS: 97012; 97110; 97161

== ENCOUNTER → 2020-12-18 12:44 | Outpatient (CLI) | payer OTHER, SELFPAY ==
[2020-11-27 07:50] VITALS: BMI 35.2
== END ==
PROVIDERS: PCP Family Medicine; Referring Provider Nurse Practitioner Acute Care; Visit Provider Nurse Practitioner Acute Care
DX: G47.33 Obstructive sleep apnea (adult) (pediatric) (principal)
CPT/HCPCS: 95806

== ENCOUNTER → 2020-12-19 09:04 | Outpatient (CLI) | payer OTHER, SELFPAY ==
[2020-12-19 10:00] LABS: Hematocrit 43.3 % (37-47); Hemoglobin 14.5 g/dL (12.0-15.0); Mean Corp Hgb Conc 33.5 g/dL (32-36); Mean Corpuscular Volume 89.5 fL (81-99); Mean Platelet Vol. 10.1 fl (6.2-12.0); Platelet Count 242 K/mm3 (150-450); RBC Distribution Width CV 12.1 % (11.6-14.6); RBC Distribution Width SD 39.8 fl (35.1-43.9); Red Blood Count 4.84 M/mm3 (4.2-5.4); White Blood Count 6.5 K/mm3 (4.4-11.0)
[2020-12-19 10:29] LABS: Vitamin D,25 Hydroxy 72.9 ng/mL
[2020-12-19 10:34] LABS: AST(SGOT) 12 U/L (15-37); Alanine Aminotransfer ALT/SGPT 25 U/L (13-56); Albumin, Serum 3.6 g/dL (3.2-5.0); Alkaline Phosphatase 127 U/L (45-117); Anion Gap 5 (5-15); BUN 19 mg/dL (7-18); BUN/Creat Ratio 24.2 RATIO (10-20); Chloride 106 mmol/L (98-107); Cholesterol 197 mg/dL (200); Creatinine, Serum 0.78 mg/dL (0.55-1.02); EST Glomerular Filtration Rate 80 mL/min (>60); Est Glom Filt Rate - Afr Amer 97 mL/min (>60); Globulin 3.6 g/dL (2.2-4.2); Glucose 88 mg/dL (74-106); High Density Lipoprotein 58 mg/dL; Protein, Total 7.2 g/dL (6.4-8.2); Sodium Level 139 mmol/L (136-145); Thyroid Stim Hormone (TSH) 0.85 uIU/mL (0.358-3.74); Triglycerides 124 mg/dL; Very Low Density Lipoprotein 25 mg/dL (5-40)
== END ==
PROVIDERS: PCP Family Medicine; Referring Provider Family Medicine; Visit Provider Family Medicine
DX: L40.50 Arthropathic psoriasis, unspecified (principal); E78.00 Pure hypercholesterolemia, unspecified; R79.89 Other specified abnormal findings of blood chemistry
CPT/HCPCS: 36415; 80053; 80061; 82306; 84403; 84443; 85027

== ENCOUNTER → 2020-12-23 08:12 | Outpatient (CLI) | payer OTHER, SELFPAY ==
[2020-11-27 07:50] VITALS: BMI 35.2
--- NOTE | 2020-12-23 08:32 | BD_ITS ---
STUDY: DUAL ENERGY X-RAY ABSORPTIOMETRY / DXA REASON FOR EXAM: Female, 60 years old. Z13.820 -- SCREE ING FOR OSTEO. TECHNIQUE: Bone Mineral Density (BMD) measurements of lumbar spine and bilateral hips were obtained. COMPARISON: None. FINDINGS: Lumbar Spine (L1-L4): g/cm2 (0.867) / T-score (-1.6) / Z-score (-0.4) Findings are suggestive of osteopenia with a moderate fracture risk. Left Femur Total: g/cm2 (0.957) / T-score (0.1) / Z-score (1.0) Left Femoral Neck: g/cm2 (0.779) / T-score (-0.6) / Z-score (0.6) Right Femur Total: g/cm2 (0.961) / T-score (0.2) / Z-score (1.0) Right Femoral Neck: g/cm2 (0.734) / T-score (-1.0) / Z-score (0.2) BD/Dexa Bone Density Study IMPRESSION: The patient is considered osteopenic as outlined below according to World Cedric Organization (WHO) criteria with a moderate fracture risk. Reference Information: The T-score is the number of standard deviations above or below the standard which is normal for young adults at their peak bone mineral density. The World Health Organization (WHO) interprets the T-scores as follows: Above -1 Normal bone density Between -1 and -2.5 Osteopenia Equal to / or below -2.5 Osteoporosis As a practical clinical guideline, osteopenia may be graded as follows: Mild -1 through -1.5 Moderate -1.6 through -2.0 Severe -2.1 through -2.4 The Z-score is the number of standard deviations above or below age-matched controls. A Z-score of less than -1.5 would be considered abnormal. References: 1. NIH Osteoporosis and Related Bone Diseases www osteo.org 2. International Society for Clinical Densitometry www iscd.org 3. National Osteoporosis Foundation www nof.org Electronically Signed: Vijay Mejia MD at 14:34 EDT , Service support ,
== END ==
PROVIDERS: PCP Family Medicine; Referring Provider Family Medicine; Visit Provider Family Medicine
DX: Z13.820 Encounter for screening for osteoporosis (principal); L40.50 Arthropathic psoriasis, unspecified
CPT/HCPCS: 77080

== ENCOUNTER 2021-06-12 08:37 | Outpatient (CLI) | payer OTHER, SELFPAY | END 2021-06-12 23:59 | disposition home or self-care (01) | LOC: LABSPEC 08:38 | PROVIDERS: PCP Family Medicine; Visit Provider Family Medicine | DX: U07.1 COVID-19 (principal) | CPT/HCPCS: 87635; U0003; U0005 ==

== ENCOUNTER 2021-06-19 16:39 | Outpatient (CLI) | payer OTHER, SELFPAY ==
--- NOTE | 2021-06-19 16:41 | RAD_ITS ---
STUDY: X-RAY CHEST REASON FOR EXAM: Female, 60 years old. Fever and cough TECHNIQUE: PA and lateral views of the chest. COMPARISON: 02/15/2017 FINDINGS: Lungs are expanded with diffuse interstitial and airspace opacifications in both lung urena suggestive of Covid pneumonia. No demonstrated effusions. Normal size heart. Normal mediastinum and rehana. Normal visualized pulmonary arteries. Normal visualized aortic arch and descending thoracic aorta. There are diffuse degenerative changes of the visualized thoracic spine. Normal visualized ribs, clavicles, and shoulders. There is no demonstrated abnormality of the visualized soft tissue structures of the upper abdomen. RAD/Chest PA and Lateral IMPRESSION: Interstitial and airspace opacifications in both lung urena without effusions. Follow-up recommended to assure resolution. Pattern of opacification suggests Covid pneumonia. Electronically Signed: Jose Lerma MD at 17:25 EST ,
== END 2021-06-19 23:59 | disposition home or self-care (01) ==
LOC: MTRAD 16:40
PROVIDERS: PCP Family Medicine; Referring Provider Family Medicine; Visit Provider Family Medicine
DX: U07.1 COVID-19 (principal)
CPT/HCPCS: 71046

== ENCOUNTER 2021-06-29 14:52 | Outpatient (CLI) | payer OTHER, SELFPAY ==
[2021-06-29 15:06] LABS: Absolute Lymphocyte Count 2.18 X10^3/uL (0.83-4.51); Absolute Neutrophil Count 8.2 X10^3/uL (2.0-7.7); Basophil# 0.02 X10^3/uL; Basophil% 0.2 % (0-1); Eosinophil# 0.08 X10^3/uL; Eosinophils% 0.7 % (0-5); Hematocrit 45.4 % (37-47); Hemoglobin 15.4 g/dL (12.0-15.0); Lymphocyte # 2.18 X10^3/ul (0.83-4.51); Lymphocyte % 18.9 % (19-41); Mean Corp Hgb Conc 33.9 g/dL (32-36); Mean Corpuscular Hgb 29.7 pg (27.0-32.0); Mean Corpuscular Volume 87.6 fL (81-99); Mean Platelet Vol. 9.3 fl (6.2-12.0); Monocyte# 0.95 X10^3/uL; Monocyte% 8.2 % (0-10); NRBC Flagged by Analyzer 0 % (0-5); Neutrophil # 8.21 X10^3/uL (2.7-7.7); Neutrophil % 71.2 % (47-70); Platelet Count 353 K/mm3 (150-450); RBC Distribution Width CV 13.2 % (11.6-14.6); RBC Distribution Width SD 42.1 fl (35.1-43.9); Red Blood Count 5.18 M/mm3 (4.2-5.4); White Blood Count 11.5 K/mm3 (4.4-11.0)
[2021-06-29 15:18] LABS: Anion Gap 5 (5-15); BUN 20 mg/dL (7-18); BUN/Creat Ratio 18.2 RATIO (10-20); Calcium,Total 10.1 mg/dL (8.5-10.1); Chloride 102 mmol/L (98-107); EST Glomerular Filtration Rate 54 mL/min (>60); Est Glom Filt Rate - Afr Amer 66 mL/min (>60); Glucose 123 mg/dL (74-106); Potassium 3.8 mmol/L (3.5-5.1); Sodium Level 140 mmol/L (136-145)
--- NOTE | 2021-06-29 15:30 | CT_ITS ---
STUDY: CTA CHEST REASON FOR EXAM: Female, 60 years old. SOB/COVID 19 RADIATION DOSAGE (If Supplied By Facility): CTDIvol = ( 9.15 ) mGy, DLP = ( 357.37 ) mGycm TECHNIQUE: The examination was performed with the intravenous administration of IV 100mL Isovue-370. Post-processing of the angiographic images was performed, with multiplanar reformation and 3D reconstruction. Individualized dose optimization techniques were used for this CT. COMPARISON: None. FINDINGS: Normal enhancement of the main pulmonary artery and right and left pulmonary arteries. Normal enhancement of the bilateral peripheral pulmonary arteries. There is no demonstrated pulmonary embolism. Normal thoracic aorta and visualized great vessels. There is no demonstrated aortic dissection. Normal heart and pericardium. Normal mediastinum. Normal hilar regions. Normal visualized trachea and bronchi. The lungs are well expanded. Patchy areas of the infiltrates in both lungs in a preferential lateral peripheral distribution suggestive of a pneumonitis associated with Covid. Normal pleura. Normal chest wall structures. Normal osseous structures. There is a 1.8 cm x 1.6 cm densely calcified nodule in the medial aspect of the inferior portion of the spleen. CT/CTA Chest W/WO Contrast IMPRESSION: No evidence of pulmonary embolism. Patchy airspace disease in the preferential peripheral distribution suggestive of pneumonitis associated with Covid. Electronically Signed: Vijay Mejia MD at 15:57 EST ,
== END 2021-06-29 23:59 | disposition home or self-care (01) ==
PROVIDERS: PCP Family Medicine; Visit Provider Nurse Practitioner Family
DX: U07.1 COVID-19 (principal)
CPT/HCPCS: 36415; 71275; 80048; 85025; Q9967

== ENCOUNTER 2021-07-09 15:17 | Outpatient (CLI) | payer OTHER, SELFPAY ==
[2021-07-09 18:42] LABS: Thyroid Stim Hormone (TSH) 0.59 uIU/mL (0.358-3.74)
== END 2021-07-09 23:59 | disposition home or self-care (01) ==
LOC: MFPLAB 15:18
PROVIDERS: PCP Family Medicine; Referring Provider Family Medicine; Visit Provider Nurse Practitioner Family
DX: R07.0 Pain in throat (principal)
CPT/HCPCS: 36415; 84443

== ENCOUNTER 2021-11-24 15:52 | Outpatient (CLI) | payer OTHER, SELFPAY ==
[2021-11-24 19:23] LABS: Anion Gap 6 (5-15); BUN 21 mg/dL (7-18); BUN/Creat Ratio 22.6 RATIO (10-20); Calcium,Total 9.2 mg/dL (8.5-10.1); Chloride 105 mmol/L (98-107); Creatinine, Serum 0.93 mg/dL (0.55-1.02); EST Glomerular Filtration Rate 66 mL/min (>60); Est Glom Filt Rate - Afr Amer 79 mL/min (>60); Glucose 91 mg/dL (74-106); Magnesium 2.2 mg/dL (1.6-2.6); Potassium 3.7 mmol/L (3.5-5.1); Sodium Level 140 mmol/L (136-145); Thyroid Stim Hormone (TSH) 1.26 uIU/mL (0.358-3.74)
== END 2021-11-24 23:59 | disposition home or self-care (01) ==
LOC: MFPLAB 15:53
PROVIDERS: PCP Family Medicine; Referring Provider Family Medicine; Visit Provider Family Medicine
DX: R00.2 Palpitations (principal)
CPT/HCPCS: 36415; 80048; 83735; 84443

== ENCOUNTER → 2021-12-14 | Outpatient (CLI) | payer OTHER, SELFPAY ==
--- NOTE | 2021-12-14 07:43 | ECHOD_ITS ---
Reason For Study: Palpitations Procedure This was a 2D Doppler, Color Flow transthoracic echocardiogram. Exam performed in department. Left Ventricle Normal LV size. Left ventricular systolic function is normal. The estimated ejection fraction is 55 %. Stage 1 diastolic dysfunction. No regional wall motion abnormalities noted. Right Ventricle Normal RV size. Normal systolic function. Atria Normal left atrium. Normal right atrium. Mitral Valve Normal mitral valve. Tricuspid Valve Normal tricuspid valve. Aortic Valve Normal aortic valve. Pulmonic Valve Normal pulmonic valve. Great Vessels Normal aortic root. The pulmonary artery is normal size. Normal inferior vena cava. Pericardium/Pleural No pericardial effusion. MMode/2D Measurements & Calculations LVIDd: 4.9 cm IVSd: 0.83 cm Ao root diam: 3.0 cm LVIDs: 3.8 cm LVPWd: 0.96 cm LA dimension: 3.0 cm RVDd: 3.5 cm FS: 23.1 % LAV(MOD-bp): 33.4 ml LA A4 area: 12.1 cm2 RA A4 area: 11.4 cm2 LAV(MOD-bp) Indexed: 18.6 ml/m2 LAV(MOD-sp2): 39.0 ml LAV(MOD-sp4): 26.2 ml Time Measurements MV dec time: 0.24 sec Doppler Measurements & Calculations MV E max cameron: 53.6 cm/sec MV V2 max: 74.6 cm/sec MV P1/2t max acmeron: 57.4 cm/sec MV A max cameron: 74.5 cm/sec MV max P.2 mmHg MV P1/2t: 74.3 msec MV E/A: 0.72 MV V2 mean: 39.8 cm/sec MV dec slope: 226.1 cm/sec2 MV mean P.75 mmHg MVA(P1/2t): 3.0 cm2 MV V2 VTI: 16.2 cm Ao V2 max: 115.6 cm/sec LV V1 max: 80.3 cm/sec PA V2 max: 63.6 cm/sec Ao max P.3 mmHg LV V1 max P.6 mmHg Ao V2 mean: 79.5 cm/sec LV V1 mean P.3 mmHg Ao mean P.9 mmHg LV V1 mean: 53.7 cm/sec Ao V2 VTI: 25.4 cm LV V1 VTI: 17.6 cm ECHO/Echo Complete Interpretation Summary Normal LV size. Left ventricular systolic function is normal. The estimated ejection fraction is 55 %. Stage 1 diastolic dysfunction. Ordering Physician: Edmund Fajardo Referring Physician: Edmund Fajardo Performed By: Abelino Zavala RCS
== END | disposition home or self-care (01) ==
LOC: CVS 07:42
PROVIDERS: PCP Family Medicine; Referring Provider Family Medicine; Visit Provider Family Medicine
DX: R00.2 Palpitations (principal)
CPT/HCPCS: 93306

== ENCOUNTER → 2022-01-12 | Outpatient (CLI) | payer OTHER, SELFPAY ==
[2022-01-12 12:42] LABS: Vitamin D,25 Hydroxy 67.6 ng/mL
[2022-01-12 12:52] LABS: AST(SGOT) 15 U/L (15-37); Alanine Aminotransfer ALT/SGPT 23 U/L (13-56); Albumin, Serum 3.6 g/dL (3.2-5.0); Alkaline Phosphatase 111 U/L (45-117); Cholesterol 201 mg/dL (200); Globulin 3.4 g/dL (2.2-4.2); High Density Lipoprotein 57 mg/dL; Triglycerides 132 mg/dL; Very Low Density Lipoprotein 26 mg/dL (5-40)
== END | disposition home or self-care (01) ==
LOC: MFPLAB 09:35
PROVIDERS: PCP Family Medicine; Visit Provider Family Medicine
DX: L40.0 Psoriasis vulgaris (principal); E78.00 Pure hypercholesterolemia, unspecified; R79.89 Other specified abnormal findings of blood chemistry; Z79.899 Other long term (current) drug therapy
CPT/HCPCS: 36415; 80061; 80076; 82306

== ENCOUNTER → 2022-02-19 | Outpatient (CLI) | payer OTHER, SELFPAY ==
--- NOTE | 2022-02-19 12:30 | STRESSREP ---
Stress Test Report Date: 02-19-2022 Procedure: Exercise tolerance test Indications: Palpitations; tachycardia; COVID-19 Consent: Per the patient Procedure: The patient exercised on a Wallace protocol for 7 minutes completing Stage II and 1 minute of Stage III achieving a peak heart rate of 123 bpm (76% predicted maximal heart rate) with a resting blood pressure of 114/68 mmHg and a peak blood pressure 140/70 mmHg and a peak MET capacity of approximately 9 MET's. The baseline ECG demonstrated normal sinus rhythm. The peak exercise ECG demonstrated no obvious ECG changes. There were no cardiac dysrhythmias pretest, during exercise, or recovery. The functional capacity was considered average. The patient had no complaint of chest discomfort during exercise or recovery. The examination was discontinued secondary to knee discomfort. Impression: 1. Technically inadequate (percent predicted maximal heart rate less than 85%) exercise tolerance test 2. Peak exercise ECG with no obvious ECG changes at the heart rate achieved 3. There were no cardiac dysrhythmias during exercise or recovery This note was generated with Interlude dictation software. It may contain incorrect words, spelling, and punctuation that were not noted in checking the note before signing.
== END | disposition home or self-care (01) ==
LOC: CVS 10:29
PROVIDERS: PCP Family Medicine; Referring Provider Internal Medicine Cardiovascular Disease; Visit Provider Internal Medicine Cardiovascular Disease
DX: R00.2 Palpitations (principal)
CPT/HCPCS: 93017

== ENCOUNTER → 2022-03-18 | Outpatient (CLI) | payer OTHER, SELFPAY ==
--- NOTE | 2022-03-18 07:57 | BI_ITS ---
MAMMOGRAPHY - BILATERAL SCREENING REASON FOR EXAM: Female, 61 years old. Routine annual screening examination. PERTINENT HISTORY: Non-contributory. TECHNIQUE: Digital bilateral breast francisco (3D mammographic acquisition) in the CC and MLO projections. 2-D mediolateral oblique (MLO) and craniocaudad (CC) views of both breasts were obtained. CAD: Full Field Digital Mammography with Computer Added Detection was performed. COMPARISON: Comparison is made with prior outside examination dated 06/01/2019. FINDINGS: Breast Composition: The breasts are extremely dense, which lowers the sensitivity of mammography. There are no dominant masses or suspicious calcifications. No other significant abnormalities are identified. There has been no significant change since the prior study. BI/SCRN MAMM (CAD)W/FRANCISCO BILAT IMPRESSION: Stable bilateral screening mammogram. Yearly follow-up mammogram recommended. (A) ASSESSMENT CATEGORY: BIRADS Category 1: Negative. A letter regarding these results will be sent to the patient by the facility within 30 days. Approximately 10% of breast cancers are not detected by mammography. A normal mammogram should not delay biopsy of a clinically suspicious abnormality. [id number] Electronically Signed: Vijay Mejia MD at 13:58 EST ,
== END | disposition home or self-care (01) ==
LOC: OPBI 07:55
PROVIDERS: PCP Family Medicine; Visit Provider Family Medicine
DX: Z12.31 Encounter for screening mammogram for malignant neoplasm of breast (principal)
CPT/HCPCS: 77063; 77067

== ENCOUNTER → 2022-07-30 | Outpatient (CLI) | payer OTHER, SELFPAY ==
--- NOTE | 2022-07-30 09:13 | RAD_ITS ---
INDICATION: Bicipital tendinitis, right shoulder EXAMINATION/TECHNIQUE: X-RAY - RIGHT XR Shoulder 4 VIEWS COMPARISON: None. FINDINGS: SOFT TISSUES: No soft tissue swelling or gas. No radiopaque foreign body. Focal calcification adjacent to the greater tuberosity suspicious for calcific tendinopathy. BONES/JOINTS: No acute fracture or subluxation.. Normal alignment. Preservation of the joint space.. No sclerotic or destructive changes observed. RAD/Shoulder min 2 Views IMPRESSION: Calcific tendinopathy. Electronically Signed: Chao Fernández DO at 23:40 EDT ,
== END | disposition home or self-care (01) ==
LOC: MTRAD 09:08
PROVIDERS: PCP Family Medicine; Referring Provider Family Medicine; Visit Provider Family Medicine
DX: M75.31 Calcific tendinitis of right shoulder (principal)
CPT/HCPCS: 73030

== ENCOUNTER → 2023-02-10 | Outpatient (CLI) | payer OTHER, SELFPAY ==
[2023-02-10 12:28] LABS: Absolute Neutrophil Count 6.5 X10^3/uL (2.0-7.7); Basophil# 0.03 X10^3/uL; Basophil% 0.3 % (0-1); Eosinophil# 0.12 X10^3/uL; Eosinophils% 1.4 % (0-5); Hematocrit 46.3 % (37-47); Hemoglobin 14.4 g/dL (12.0-15.0); Lymphocyte % 19.2 % (19-41); Mean Corp Hgb Conc 31.1 g/dL (32-36); Mean Corpuscular Hgb 29.6 pg (27.0-32.0); Mean Corpuscular Volume 95.3 fL (81-99); Mean Platelet Vol. 10.4 fl (6.2-12.0); Monocyte% 5.6 % (0-10); NRBC Flagged by Analyzer 0 % (0-5); Neutrophil # 6.45 X10^3/uL (2.7-7.7); Neutrophil % 72.9 % (47-70); Platelet Count 209 K/mm3 (150-450); RBC Distribution Width CV 12.9 % (11.6-14.6); RBC Distribution Width SD 44.8 fl (35.1-43.9); Red Blood Count 4.86 M/mm3 (4.2-5.4); White Blood Count 8.9 K/mm3 (4.4-11.0)
[2023-02-10 12:38] LABS: Vitamin D,25 Hydroxy 57.1 ng/mL
[2023-02-10 12:52] LABS: AST(SGOT) 6 U/L (15-37); Alanine Aminotransfer ALT/SGPT 18 U/L (13-56); Albumin, Serum 3.4 g/dL (3.2-5.0); Alkaline Phosphatase 118 U/L (45-117); Anion Gap 4 (5-15); BUN 17 mg/dL (7-18); BUN/Creat Ratio 18.6 RATIO (10-20); Calcium,Total 9.2 mg/dL (8.5-10.1); Chloride 108 mmol/L (98-107); Cholesterol 199 mg/dL (200); Creatinine, Serum 0.92 mg/dL (0.55-1.02); EST Glomerular Filtration Rate 67 mL/min (>60); Est Glom Filt Rate - Afr Amer 81 mL/min (>60); Globulin 3.5 g/dL (2.2-4.2); Glucose 91 mg/dL (74-106); High Density Lipoprotein 58 mg/dL; Potassium 4.3 mmol/L (3.5-5.1); Protein, Total 6.9 g/dL (6.4-8.2); Sodium Level 142 mmol/L (136-145); Thyroid Stim Hormone (TSH) 0.74 uIU/mL (0.358-3.74); Triglycerides 197 mg/dL; Troponin-I HS 4 pg/mL (3.0-54.0); Very Low Density Lipoprotein 39 mg/dL (5-40)
== END | disposition home or self-care (01) ==
PROVIDERS: PCP Family Medicine; Visit Provider Family Medicine
DX: R00.2 Palpitations (principal); R68.89 Other general symptoms and signs
CPT/HCPCS: 36415; 80053; 80061; 82306; 84443; 84484; 85025

== ENCOUNTER → 2023-12-01 | Outpatient (CLI) | payer OTHER, SELFPAY ==
[2023-12-01 10:19] LABS: Hematocrit 44.4 % (37-47); Hemoglobin 14.5 g/dL (12.0-15.0); Mean Corp Hgb Conc 32.7 g/dL (32-36); Mean Corpuscular Hgb 29.9 pg (27.0-32.0); Mean Corpuscular Volume 91.5 fL (81-99); Mean Platelet Vol. 10.3 fl (6.2-12.0); Platelet Count 219 K/mm3 (150-450); RBC Distribution Width CV 12.5 % (11.6-14.6); RBC Distribution Width SD 41.3 fl (35.1-43.9); Red Blood Count 4.85 M/mm3 (4.2-5.4); White Blood Count 6.4 K/mm3 (4.4-11.0)
[2023-12-01 10:27] LABS: Vitamin B12 796 pg/mL (211-911); Vitamin D,25 Hydroxy 66.1 ng/mL
[2023-12-01 10:34] LABS: Erythrocyte Sedimentation Rate 13 mm/hr (0-30)
[2023-12-01 10:42] LABS: ALB/GLOB Ratio 1.1 RATIO (0.9-2.4); AST(SGOT) 16 U/L (15-37); Alanine Aminotransfer ALT/SGPT 18 U/L (13-56); Albumin, Serum 3.6 g/dL (3.2-5.0); Alkaline Phosphatase 101 U/L (45-117); Anion Gap 3 (5-15); BUN 17 mg/dL (7-18); BUN/Creat Ratio 21.4 RATIO (10-20); Calcium,Total 9.2 mg/dL (8.5-10.1); Chloride 108 mmol/L (98-107); Cholesterol 211 mg/dL (200); Creatinine, Serum 0.79 mg/dL (0.55-1.02); EST Glomerular Filtration Rate 78 mL/min (>60); Est Glom Filt Rate - Afr Amer 95 mL/min (>60); Globulin 3.2 g/dL (2.2-4.2); Glucose 87 mg/dL (74-106); High Density Lipoprotein 58 mg/dL; Potassium 4.1 mmol/L (3.5-5.1); Protein, Total 6.8 g/dL (6.4-8.2); Sodium Level 140 mmol/L (136-145); Thyroid Stim Hormone (TSH) 1.04 uIU/mL (0.358-3.74); Triglycerides 163 mg/dL; Very Low Density Lipoprotein 33 mg/dL (5-40)
== END | disposition home or self-care (01) ==
LOC: MFPLAB 08:58
PROVIDERS: PCP Family Medicine; Visit Provider Family Medicine
DX: E78.00 Pure hypercholesterolemia, unspecified (principal); L40.50 Arthropathic psoriasis, unspecified; R53.83 Other fatigue; E53.8 Deficiency of other specified B group vitamins
CPT/HCPCS: 36415; 80053; 80061; 82306; 82607; 84443; 85027; 85652

== ENCOUNTER → 2024-02-03 | Outpatient (CLI) | payer OTHER, SELFPAY ==
--- NOTE | 2024-02-03 09:39 | BI_ITS ---
MAMMOGRAPHY - BILATERAL SCREENING REASON FOR EXAM: Female, 63 years old. Routine annual screening examination. PERTINENT HISTORY: Non-contributory. TECHNIQUE: Digital bilateral breast francisco (3D mammographic acquisition) in the CC and MLO projections. 2-D mediolateral oblique (MLO) and craniocaudad (CC) views of both breasts were obtained. CAD: Full Field Digital Mammography with Computer Added Detection was performed. COMPARISON: Comparison is made with prior study dated March 18, 2022. FINDINGS: Breast Composition: The breasts are extremely dense, which lowers the sensitivity of mammography. There are no dominant masses or suspicious calcifications. No other significant abnormalities are identified. There has been no significant change since the prior study. BI/SCRN MAMM (CAD)W/FRANCISCO BILAT IMPRESSION: Stable bilateral screening mammogram. Yearly follow-up mammogram recommended. (A) ASSESSMENT CATEGORY: BIRADS Category 1: Negative. A letter regarding these results will be sent to the patient by the facility within 30 days. Approximately 10% of breast cancers are not detected by mammography. A normal mammogram should not delay biopsy of a clinically suspicious abnormality. [id number] Electronically Signed: Vijay Mejia MD at 10:54 EDT ,
--- NOTE | 2024-02-03 09:39 | BD_ITS ---
STUDY: DUAL ENERGY X-RAY ABSORPTIOMETRY / DXA REASON FOR EXAM: Female, 63 years old. 627.8Menopausal postmenopausalBONE DENSITY REASON FOR EXAM TECHNIQUE: Bone Mineral Density (BMD) measurements of lumbar spine and bilateral hips were obtained. COMPARISON: Comparison is made with prior study dated December 23, 2020. FINDINGS: Lumbar Spine (L1-L4): g/cm2 (0.833) / T-score (-1.9) / Z-score (-0.4) Findings are suggestive of osteopenia with a moderate fracture risk. Left Femur Total: g/cm2 (0.922) / T-score (-0.2) / Z-score (0.8) Left Femoral Neck: g/cm2 (0.743) / T-score (-1.0) / Z-score (0.4) Right Femur Total: g/cm2 (0.916) / T-score (-0.2) / Z-score (0.8) Right Femoral Neck: g/cm2 (0.723) / T-score (-1.1) / Z-score (0.2) The T-Scores on the most recent prior examination were: Lumbar Spine (L1-L4): There has been worsening of bone density since the previous examination. Left Femur Total: which represents a worsening of 3.6%. Right Femur Total: which represents a worsening of 4.7%. BD/Dexa Bone Density Study IMPRESSION: The patient is considered osteopenic as outlined below according to World Cedric Organization (WHO) criteria with a moderate fracture risk. There has been worsening of bone density since the previous examination. Reference Information: The T-score is the number of standard deviations above or below the standard which is normal for young adults at their peak bone mineral density. The World Health Organization (WHO) interprets the T-scores as follows: Above -1 Normal bone density Between -1 and -2.5 Osteopenia Equal to / or below -2.5 Osteoporosis As a practical clinical guideline, osteopenia may be graded as follows: Mild -1 through -1.5 Moderate -1.6 through -2.0 Severe -2.1 through -2.4 The Z-score is the number of standard deviations above or below age-matched controls. A Z-score of less than -1.5 would be considered abnormal. References: 1. NIH Osteoporosis and Related Bone Diseases www osteo.org 2. International Society for Clinical Densitometry www iscd.org 3. National Osteoporosis Foundation www nof.org Electronically Signed: Vijay Mejia MD at 9:37 EDT ,
== END | disposition home or self-care (01) ==
PROVIDERS: PCP Family Medicine; Referring Provider Family Medicine; Visit Provider Family Medicine
DX: Z13.820 Encounter for screening for osteoporosis (principal); L40.50 Arthropathic psoriasis, unspecified; Z78.0 Asymptomatic menopausal state; Z12.31 Encounter for screening mammogram for malignant neoplasm of breast
CPT/HCPCS: 77063; 77067; 77080

== ENCOUNTER → 2024-09-19 | Outpatient (CLI) | payer OTHER, SELFPAY ==
--- NOTE | 2024-09-19 16:21 | RAD_ITS ---
PROCEDURE: ABDOMEN SINGLE VIEW 09/19/2024 REASON FOR EXAM: UNSPECIFIED ABD PAIN TECHNIQUE: Single view abdomen. Two images to include the entire abdomen and pelvis COMPARISON: None available FINDINGS: Bowel-gas pattern appears nonspecific with a relative paucity of small-bowel gas. Some gas and stool is seen throughout the colon. No gaseous distention of bowel or evidence of mass effect. The visualized lung bases appear clear. 1.9 cm eggshell calcification left upper quadrant may be related to aneurysm or partially calcified cystic lesion among others and is nonspecific. 2 adjacent fallopian tube clips are seen in the left pelvis. No clips are seen in the right. The visualized osseous structures appear within limits. RAD/Abdomen Single View IMPRESSION: Bowel-gas pattern appears nonspecific with a relative paucity of small-bowel ga s. Some gas and stool is seen throughout the colon. No gaseous distention of bowel or evidence of mass effect. Reading Location: [id number]
[2024-09-19 18:05] LABS: Hematocrit 42.2 % (37-47); Hemoglobin 14.1 g/dL (12.0-15.0); Mean Corp Hgb Conc 33.4 g/dL (32-36); Mean Corpuscular Hgb 30.5 pg (27.0-32.0); Mean Corpuscular Volume 91.1 fL (81-99); Platelet Count 243 K/mm3 (150-450); RBC Distribution Width CV 12.5 % (11.6-14.6); RBC Distribution Width SD 41.4 fl (35.1-43.9); Red Blood Count 4.63 M/mm3 (4.2-5.4); White Blood Count 9.6 K/mm3 (4.4-11.0)
[2024-09-20 11:15] LABS: ALB/GLOB Ratio 1.6 RATIO (0.9-2.4); AST(SGOT) 17 U/L (<=31); Alanine Aminotransfer ALT/SGPT 15 U/L (<=34); Albumin, Serum 4.2 g/dL (3.4-4.8); Alkaline Phosphatase 115 U/L (35-104); Anion Gap 11 (5-15); BUN 15 mg/dL (4-19); BUN/Creat Ratio 17.8 RATIO (10-20); Calcium,Total 9.5 mg/dL (7.6-11.0); Carbon Dioxide 25.3 mmol/L (21.0-32.0); Chloride 104 mmol/L (98-108); Creatinine, Serum 0.86 mg/dL (0.70-1.20); EST Glomerular Filtration Rate 77 (>60); Globulin 2.5 g/dL (2.2-4.2); Glucose 90 mg/dL (70-99); Potassium 3.9 mmol/L (3.3-5.1); Protein, Total 6.7 g/dL (5.9-8.4); Sodium Level 141 mmol/L (133-145); Total Bilirubin 0.36 mg/dL (0.00-1.30)
== END | disposition home or self-care (01) ==
LOC: MFPLAB 15:59 → MTLAB 16:18
PROVIDERS: PCP Family Medicine
DX: R10.9 Unspecified abdominal pain (principal)
CPT/HCPCS: 36415; 74018; 80053; 85027

== ENCOUNTER 2024-09-26 17:46 | Emergency (ER) | payer OTHER, SELFPAY ==
[2024-09-26 17:47] VITALS: BP 130/88; PULSE 87; RESP 15; TEMP 36; O2SAT 99; BMI 34.2
[2024-09-26 18:41] LABS: ALB/GLOB Ratio 1.4 RATIO (0.9-2.4); AST(SGOT) 15 U/L (<=31); Alanine Aminotransfer ALT/SGPT 11 U/L (<=34); Albumin, Serum 4.2 g/dL (3.4-4.8); Alkaline Phosphatase 125 U/L (35-104); Anion Gap 11 (5-15); BUN 12 mg/dL (4-19); BUN/Creat Ratio 14.5 RATIO (10-20); Calcium,Total 9.6 mg/dL (7.6-11.0); Carbon Dioxide 26.1 mmol/L (21.0-32.0); Chloride 103 mmol/L (98-108); Creatinine, Serum 0.82 mg/dL (0.70-1.20); EST Glomerular Filtration Rate 81 (>60); Estimated Creatinine Clearance 69.97 ml/min (50-250); Glucose 84 mg/dL (70-99); Lipase 30 U/L (13-75); Potassium 3.8 mmol/L (3.3-5.1); Protein, Total 7.2 g/dL (5.9-8.4); Sodium Level 140 mmol/L (133-145); Total Bilirubin 0.53 mg/dL (0.00-1.30)
--- NOTE | 2024-09-26 18:58 | CT_ITS ---
PROCEDURE: ABDOMEN/PELVIS W IV CONT ONLY 09/26/2024 REASON FOR EXAM: BILATERAL LOWER QUADRANT ABDOMINAL PAIN WITH PERIT TECHNIQUE: Abdomen and pelvis CT with intravenous contrast. Coronal and Sagittal reconstruction series were provided. CT study without 100 cc of Isovue 370 and no GI contrast. One or more dose reduction techniques were used (e.g., Automated exposure control, adjustment of the mA and/or kV according to patient size, use of iterative reconstruction technique. FINDINGS: Normal liver. Normal pancreas. Calcific density in the dorsal spleen could represent a prior calcified hematoma. Unremarkable. No renal mass or hydronephrosis. No free air or free fluid. No bowel obstruction. No abscess. Negative for bowel wall thickening. Negative for adenopathy. Lung bases are clear. Sagittal images demonstrate no lumbar compression deformity or subluxation. There is no pelvic fracture CT/Abdomen/Pelvis W IV Cont ONLY IMPRESSION: No acute abnormality OVERALL FINAL ASSESSMENT: . LI-RADS is not meant to be used in patients <18 years or patients with cirrhosi s due to congenital hepatic fibrosis or due to vascular disorders, because these patients have a lower chance of developing HC C. Reading Location: [facility]
[2024-09-26 19:09] LABS: Absolute Lymphocyte Count 2.14 X10^3/uL (0.83-4.51); Absolute Neutrophil Count 6.4 X10^3/uL (2.0-7.7); Basophil# 0.03 X10^3/uL; Basophil% 0.3 % (0-1); Eosinophils% 1.1 % (0-5); Hematocrit 44.8 % (37-47); Lymphocyte # 2.14 X10^3/ul (0.83-4.51); Lymphocyte % 22.6 % (19-41); Mean Corp Hgb Conc 33.5 g/dL (32-36); Mean Corpuscular Hgb 30.4 pg (27.0-32.0); Mean Corpuscular Volume 90.9 fL (81-99); Mean Platelet Vol. 10.1 fl (6.2-12.0); Monocyte# 0.77 X10^3/uL; Monocyte% 8.1 % (0-10); NRBC Flagged by Analyzer 0 % (0-5); Neutrophil # 6.41 X10^3/uL (2.7-7.7); Neutrophil % 67.6 % (47-70); Platelet Count 247 K/mm3 (150-450); RBC Distribution Width CV 12.2 % (11.6-14.6); RBC Distribution Width SD 40.7 fl (35.1-43.9); Red Blood Count 4.93 M/mm3 (4.2-5.4); White Blood Count 9.5 K/mm3 (4.4-11.0)
--- NOTE | 2024-09-26 19:09 | EX.ED.DYSGE1 ---
HPI History of Present Illness Chief Complaint: Abd Pain Detail of Chief Complaint: Bilateral lower abdominal pain for 8 days Informant: patient and spouse/S.O. Onset/Context/Timing Onset: Days Context: Sudden Onset Timing: Continuous Quality: Pain Location: Right and left lower quadrant Current Severity: Mild Maximum Severity: Severe Worsened by: Movement, walking, palpation Relieved by: Nothing Associated Symptoms Associated Symptoms: Nausea Narrative Narrative: Patient is 63-year-old woman. She has history of hyperreactive airway disease, depression and dyslipidemia. She presents with bilateral lower abdominal pain that is gotten worse over the past 8 days. She was sent in by her doctor for CAT scan. She denies fever or chills. She does endorse nausea without vomiting or diarrhea. She is still passing gas. She denies constipation. She denies dysuria, frequency, urgency or hematuria. She does have a history of diverticulosis/diverticulitis. There is no history of trauma. She denies any neurovascular symptoms or lower extremity or back pain. She is status post hysterectomy for possible fibroids. She states she has both ovaries. Her appendix is also present. Prior similar symptoms: No Recent Illness/Hospitalization: No PFSH PFSH Medical History COVID-19 long hauler Palpitations Allergic rhinitis Home Medications ?Medication ?Instructions ?Recorded ?Last Taken ?Type atorvastatin 20 mg tablet 20 mg PO DAILY 02/01/20 Unknown History albuterol sulfate 90 mcg/actuation 2 puff inhalation Q6H PRN 11/27/20 Unknown Rx aerosol inhaler (ProAir HFA) shortness of breath or wheezing #18 grams apremilast 30 mg tablet (Otezla) 30 mg PO BID 01/08/21 Unknown History ondansetron HCl 4 mg tablet 4 mg PO TID PRN nausea and vomiting 02/03/22 Unknown History trazodone 50 mg tablet 75 mg PO QHS 02/03/22 Unknown History calcium carbonate 1,000 mg PO DAILY 02/10/22 Unknown History cholecalciferol (vitamin D3) 25 25 mcg PO DAILY 02/10/22 Unknown History mcg (1,000 unit) capsule cyanocobalamin (vitamin B-12) 100 100 mcg PO DAILY 02/10/22 Unknown History mcg tablet diphenhydramine HCl 25 mg capsule 25 mg PO QHS 02/10/22 Unknown History (Benadryl) loratadine 10 mg tablet (Claritin) 10 mg PO DAILY 02/10/22 Unknown History hydrocodone-acetaminophen 5-325mg 1 tab PO Q6H PRN PRN Pain 3 days 09/26/24 Unknown Rx 5mg-325mg #10 TABLETS Allergy/AdvReac Type Severity Reaction Status Date / Time latex AdvReac Itching Verified 09/26/24 17:47 Family History Mother Atrial fibrillation Uncle Myocardial infarction Surgical History History of tubal ligation History of Social History Smoking Status: Never smoker alcohol intake: current alcohol intake frequency: holidays/special occasions only substance use type: does not use caffeine: Yes Type: carbonated beverages Number of servings: 1 and coffee Number of servings: 2 ROS ROS ED Constitutional Constitutional ED: Reports chills; Denies fever(s), subjective or sweats Eyes Eyes: Denies blurry vision or change in vision ENT ENT ED: Denies rhinorrhea or sore throat Cardiovascular Cardiovascular: Denies chest pain or palpitations Respiratory/Chest Respiratory/Chest: Denies cough, dyspnea or dyspnea on exertion Gastrointestinal Gastrointestinal: Reports abdominal pain and nausea; Denies constipation, diarrhea, melena or vomiting Genitourinary Genitourinary ED: Denies dysuria, hematuria or urinary frequency Musculoskeletal Musculoskeletal: Denies arthralgias, back pain or myalgias Integumentary Denies rash Neurologic Neurologic: Denies paresthesias or weakness Hematologic/Lymphatic Hematologic/Lymphatic: Reports systems reviewed and no addt'l complaints, except as documented EXAM Physical Exam Const Vital Signs: 09/26/24 17:47 09/26/24 19:47 09/26/24 21:00 Temperature 96.8 F L Temperature Source Temporal Pulse Rate 87 79 81 Respiratory Rate 15 18 16 Blood Pressure 130/88 H 150/72 H 132/84 H Blood Pressure Mean 102 98 100 Pulse Ox 99 99 98 Oxygen Delivery Method Room Air Room Air Room Air Positive well nourished and well developed Constitutional Narrative: BMI is 34.2. Patient appears uncomfortable. General Appearance ED: well developed and pallor HEENT Reports dry mucous membranes HEENT Narrative: Head is atraumatic and normocephalic. Ears normal. Nares patent. Mouth ED: Yes dry mucous membranes Mouth: dry mucous membranes Eyes PERRL and EOMs intact bilaterally General Eye ED: Negative for pale conjunctiva or scleral icterus Neck no lymphadenopathy, supple and no JVD Chest Wall inspection of chest normal and palpation of chest normal Resp normal respiratory effort and clear to auscultation bilaterally Cardio regular rate, regular rhythm, S1 normal heart sound, S2 normal heart sound and no murmurs GI no masses; Negative for non-tender, non-distended or hepatosplenomegaly GI Narrative: Patient has significant tenderness right and left quadrant. She has percussion tenderness. Shaking of the bed causes her discomfort. There is tympany to percussion. There is no evidence of inguinal lymphadenopathy or mass. There is no umbilical hernia. Back/Spine no CVA tenderness Extremity normal to inspection Extremity Narrative: Michael Arnel 4 test is negative on the right and left for any discomfort General Extremety ED: Negative for edema or tenderness General Extremity: Negative for edema Neuro oriented x3, CN's II-XII intact bilaterally and no sensory deficits noted Sensorium / Orientation: alert Psych mental status grossly normal Skin no rashes or lesions noted, no wounds and skin turgor normal General Skin Exam: pallor; Negative for elasticity normal or jaundice MDM MDM MDM Narrative Medical decision making narrative: Differential diagnosis would be diverticulitis, diverticulitis with perforation, appendicitis with perforation, abdominal pain of unknown etiology, malignancy. Will obtain CT appropriate blood work. Patient was medicated with Zofran for nausea and morphine for her pain. Lab Data Attestation: I reviewed the patient's lab results. Lab results narrative: CBC is normal. Comprehensive metabolic panel slight elevation of alkaline phosphatase otherwise normal. Labs: Laboratory Results - last 24 hr 09/26/24 09/26/24 18:04 19:20 WBC 9.5 RBC 4.93 Hgb 15.0 Hct 44.8 MCV 90.9 MCH 30.4 MCHC 33.5 RDW Std Deviation 40.7 RDW Coeff of Maral 12.2 Plt Count 247 MPV 10.1 Immature Gran % (Auto) 0.300 Neut % (Auto) 67.6 Lymph % (Auto) 22.6 [place] % (Auto) 8.1 Eos % (Auto) 1.1 Baso % (Auto) 0.3 Absolute Neuts (auto) 6.4 Absolute Lymphs (auto) 2.14 Nucleated RBC % 0 Sodium 140 Potassium 3.8 Chloride 103 Carbon Dioxide 26.1 Anion Gap 11 BUN 12 Creatinine 0.82 Estim Creat Clear Calc 69.97 Est GFR (MDRD) Non-Af 81 BUN/Creatinine Ratio 14.5 Glucose 84 Calcium 9.6 Total Bilirubin 0.53 AST 15 ALT 11 Alkaline Phosphatase 125 H Total Protein 7.2 Albumin 4.2 Globulin 3.0 Albumin/Globulin Ratio 1.4 Lipase 30 Urine Color Yellow Urine Clarity Clear Urine pH 6.0 Ur Specific [place] 1.020 Urine Protein 30 H Urine Glucose (UA) Normal Urine Ketones Negative Urine Occult Blood Negative Urine Nitrite Negative Urine Bilirubin Negative Urine Urobilinogen Normal Ur Leukocyte Esterase Negative Urine RBC 0-5 SEEN Urine WBC 0-5 SEEN Ur Squamous Epith Cells 0-5 SEEN Urine Bacteria 1+ Urine Mucus 0 SEEN Radiography Diagnostic Testing: Clinical Impression(s) from Imaging Studies Abdomen/Pelvis CT 09/26/24 18:58 IMPRESSION: No acute abnormality OVERALL FINAL ASSESSMENT: . LI-RADS is not meant to be used in patients <18 years or patients with cirrhosis due to congenital hepatic fibrosis or due to vascular disorders, because these patients have a lower chance of developing HCC. Reading [facility] CT of the abdomen pelvis with IV contrast reveals no evidence of the liver, gallbladder, spleen, kidneys. No uterus is noted. There is surgical clips left adnexal area noted. There is no free fluid or evidence of pneumoperitoneum. There is some nonspecific air-fluid levels noted in the pelvis. Awaiting formal read by radiologist. Management Discussion w/another healthcare provider: Radiologist Treatment and Re-Evaluation :: Patient and her were told that all of her tests are normal. The cause of her abdominal pain is unknown Discharge Plan Triage Chief Complaint: Abd Pain ED Provider: Connor Sanchezo Dx/Rx/DC Orders Clinical Impression: Abdominal pain, acute, bilateral lower quadrant, ERICK (obstructive sleep apnea), BMI 35.0-35.9,adult Instructions: ED Abdominal Pain Unkn Cause Fem Prescriptions: New hydrocodone-acetaminophen 5-325 mg tablet 1 tab PO Q6H PRN PRN (Reason: Pain) 3 Days Qty: 10 0RF No Action albuterol sulfate [ProAir HFA] 90 mcg/actuation HFA aerosol inhaler 2 puff inhalation Q6H PRN (Reason: shortness of breath or wheezing) Qty: 18 6RF Otezla 30 mg tablet 30 mg PO BID cyanocobalamin (vitamin B-12) 100 mcg tablet 100 mcg PO DAILY calcium carbonate 500 mg calcium (1,250 mg) tablet 1,000 mg PO DAILY diphenhydramine HCl [Benadryl] 25 mg capsule 25 mg PO QHS loratadine [Claritin] 10 mg tablet 10 mg PO DAILY cholecalciferol (vitamin D3) 25 mcg (1,000 unit) capsule 25 mcg PO DAILY ondansetron HCl 4 mg tablet 4 mg PO TID PRN (Reason: nausea and vomiting) atorvastatin 20 MG tablet 20 mg PO DAILY trazodone 50 mg tablet 75 mg PO QHS Primary Care Provider: Mikhail Fajardo Referrals: Mikhail Fajardo MD [Primary Care Provider] - 1-2 Days if not improving Print Language: Spanish Disposition Disposition: Home, Self Care
[2024-09-26] MEDS: 0.9% Normal Saline (1000mL) 1,000 ML 1000 ML IV (19:30)
[2024-09-26] MEDS: Ondansetron 4 MG/2 ML Vial IV (19:30)
[2024-09-26] MEDS: Morphine 4 MG/ML Syringe IV (19:31)
[2024-09-26 19:34] LABS: Mucous, Urine 0 SEEN /hpf (<or=2+)
[2024-09-26 19:47] VITALS: BP 150/72; PULSE 79; RESP 18; O2SAT 99
[2024-09-26 19:54] LABS: Color, Urine Yellow (Yellow); Glucose, Dipstick Normal (Normal); Ketone-Dipstick Negative (Negative); Leukocyte Esterase-Dipstick Negative /ul (Negative); Nitrite-Dipstick Negative (Negative); Occult Blood-Urine Negative /ul (Negative); Protein-Dipstick 30 mg/dl (Negative); Urine Bilirubin Dipstick Negative (Negative); Urine Clarity Clear (Clear); Urine Urobilinogen Normal (Normal)
[2024-09-26 20:54] LABS: Bacteria 1+ /hpf (None Seen); Squamous Epithelial Cells - UA 0-5 SEEN /hpf (5-10)
[2024-09-26 20:57] LABS: Red Blood Cells-Urine 0-5 SEEN /hpf (0-5)
[2024-09-26 20:58] LABS: White Blood Cells 0-5 SEEN /hpf (0-5)
[2024-09-26 21:00] VITALS: BP 132/84; PULSE 81; RESP 16; O2SAT 98
[2024-09-26 22:26] VITALS: BP 140/85; PULSE 84; RESP 18; TEMP 36.4; O2SAT 96
== END 2024-09-26 22:27 | disposition home or self-care (01) ==
PROVIDERS: Emergency Provider Emergency Medicine; PCP Family Medicine; Referring Provider Emergency Medicine; Visit Provider Emergency Medicine
DX: R10.32 Left lower quadrant pain (principal); G47.33 Obstructive sleep apnea (adult) (pediatric); E78.5 Hyperlipidemia, unspecified; R10.31 Right lower quadrant pain; Z90.710 Acquired absence of both cervix and uterus; R11.0 Nausea; Z98.51 Tubal ligation status; Z86.16 Personal history of COVID-19; Z87.19 Personal history of other diseases of the digestive system
CPT/HCPCS: 74177; 80053; 81001; 83690; 85025; 96361; 96374; 96375; 99283; Q9967; A4216; J2405